=== PATIENT | male | born 1940 | race Caucasian/White ===

== ENCOUNTER 2022-03-22 23:54 | Inpatient (IN) | payer MEDICARE ==
[~2022-03-22] VITALS: Ht 175.3 cm; Wt 68.9 kg
--- NOTE | 2022-03-23 00:17 | NUR ---
BIBS. GENERALIZED ABD PAIN RADIATING TO BILAT FLANK X 1600 DULL THROBBING 04/01. PT AWAKE AND ALERT X4 BREATHING EVEN AND UNLABORED ALL V/S WNL.
--- NOTE | 2022-03-23 00:20 | NUR ---
DEDRA FISCHER: [phone]
[2022-03-23] MEDS ORDERED: IV NS 0.9% 1,000 ML BAG IV ONE (00:30)
[2022-03-23] MEDS ORDERED: ONDANSETRON HCL/PF 4 MG/2 ML VIAL IVP ONE (00:30)
[2022-03-23] MEDS ORDERED: KETOROLAC TROMETHAMINE INJ 30 MG/ML VIAL IV ONE (00:30)
[2022-03-23] MEDS ORDERED: ONDANSETRON HCL/PF 4 MG/2 ML VIAL ONE (00:39)
[2022-03-23] MEDS ORDERED: KETOROLAC TROMETHAMINE 15 MG/ML VIAL ONE (00:39)
--- NOTE | 2022-03-23 00:47 | NUR ---
ROGELIO Vasquez ESTABLISHED BLOOD DRAWN AND SENT TO LAB
[2022-03-23 01:05] LABS: BASOPHILS # (AUTO) 0.1 K/uL (0.0-0.2); BASOPHILS % (AUTO) 0.6 % (0.0-2.0); EOSINOPHILS % (AUTO) 0.1 % (0.0-6.0); HEMATOCRIT 45 % (39-51); HEMOGLOBIN 15.3 g/dL (13.5-17.5); LYMPHOCYTES # (AUTO) 0.5 K/uL (0.8-4.8); LYMPHOCYTES % (AUTO) 5.5 % (20.0-44.0); MEAN CORPUSCULAR HGB CONC 34 g/dl (31.0-36.0); MEAN CORPUSCULAR VOLUME 98 fL (80-96); MONOCYTES # (AUTO) 0.3 K/uL (0.1-1.30); MONOCYTES % (AUTO) 3.4 % (2.0-12.0); NEUTROPHILS # (AUTO) 7.6 K/uL (1.8-8.9); NEUTROPHILS % (AUTO) 90.4 % (43.0-81.0); PLATELET COUNT (AUTO) 162 K/uL (150-450); RED BLOOD CELL COUNT(AUTO) 4.57 MIL/uL (4.5-6.0); WHITE BLOOD COUNT (AUTO) 8.4 K/uL (4.3-11.0)
[2022-03-23] MEDS ORDERED: MORPHINE SULFATE INJ 4 MG/ML DISP.SYRIN ONE ×2 (01:14→02:15)
[2022-03-23] MEDS ORDERED: MORPHINE SULFATE INJ 2 MG/ML DISP.SYRIN IV ONE ×2 (01:30→02:30)
[2022-03-23 01:36] LABS: ALANINE AMINOTRANSFERASE 21 U/L (12-78); ALBUMIN 3.7 g/dL (3.4-5.0); ALKALINE PHOSPHATASE 56 U/L (46-116); ASPARTATE AMINOTRANSFERASE 19 U/L (15-37); BILIRUBIN,DIRECT 0.2 mg/dL (0.0-0.2); BILIRUBIN,TOTAL 0.6 mg/dL (0.2-1.0); CARBON DIOXIDE 29 mmol/L (21-32); CHLORIDE 103 mmol/L (98-107); CREATININE 1.5 mg/dL (0.6-1.3); GLUCOSE 140 mg/dL (74-106); POTASSIUM 4.1 mmol/L (3.5-5.1); SODIUM SERUM 142 mmol/L (136-145); TOTAL PROTEIN, SERUM 7.8 g/dL (6.4-8.2); UREA NITROGEN, BLOOD 23 mg/dL (7-18)
--- NOTE | 2022-03-23 01:42 | NUR ---
URINE COLLECTED AND SENT TO LAB
[2022-03-23 02:00] LABS: CALCIUM, SERUM 9.2 mg/dL (8.5-10.1)
--- NOTE | 2022-03-23 02:01 | NUR ---
DR GAYLE ON THE PHONE WITH DR JETER GENERAL SURGEON
[2022-03-23 02:16] LABS: BILIRUBIN,URINE NEGATIVE (NEGATIVE); COLOR,URINE YELLOW (YELLOW); LEUKOCYTE ESTERASE ,URINE NEGATIVE (NEGATIVE); NITRITE, URINE NEGATIVE (NEGATIVE); PH,URINE 7.5 (5.0-8.0); PROTEIN,URINE NEGATIVE (NEGATIVE); UGLUCOSE NEGATIVE (NEGATIVE); UROBILINOGEN,URINE 0.2 EU/dL (0.2)
--- NOTE | 2022-03-23 02:31 | NUR ---
NGT INSERTED 16FR AT 55CM. +AUSCULTATION BUT NO RESIDUAL NOTED. XRAY ORDER PLACED FOR PLACEMENT CONFIRMATION.
--- NOTE | 2022-03-23 02:32 | NUR ---
PER RN TRANSPORT, SMALL BOWEL FOLLOW THROUGH UNABLE TO BE PERFORMED UNTIL THE MORNING DUE TO HAVING NO RADIOLOGIST YOUTH NUTRITIONAL MONITOR.
--- NOTE | 2022-03-23 02:38 | NUR ---
ANGELO COLLECTED AND SENT TO [facility]
[2022-03-23] MEDS ORDERED: Z GUARD REMEDY 4 OZ OINT TP PRN (03:00)
[2022-03-23] MEDS ORDERED: ACETAMINOPHEN 650 MG/SUPP.RECT RC PRN (03:00)
[2022-03-23] MEDS ORDERED: HYDROCODONE/APAP 10/325MG TABLET PO PRN (03:00)
[2022-03-23] MEDS ORDERED: IV NS 0.9% 1,000 ML IV PRN (03:00)
[2022-03-23] MEDS ORDERED: ONDANSETRON HCL/PF 4 MG/2 ML VIAL IVP PRN (03:00)
[2022-03-23] MEDS ORDERED: HYDROMORPHONE INJ 2 MG/ML DISP.SYRIN IV PRN (03:00)
[2022-03-23] MEDS ORDERED: HYDROMORPHONE INJ 2 MG/ML DISP.SYRIN ONE (03:09)
[2022-03-23 04:44] LABS: LIPASE 159 U/L (73-393)
--- NOTE | 2022-03-23 07:39 | NUR ---
BED ASSIGNED [id number]
[2022-03-23] MEDS ORDERED: BENA10TA74 PO (07:48)
[2022-03-23] MEDS ORDERED: ASPI-1169 PO (07:48)
--- NOTE | 2022-03-23 08:06 | NUR ---
REPORT GIVEN TO KEVIN MCKEON FOR BAILEY
[2022-03-23] MEDS ORDERED: DIATR MEGLU/DIATRIZOATE SODIUM 120 ML BOTTLE (GASTROGRAPHIN) ONE (09:38)
[2022-03-23] MEDS ORDERED: DIATR MEGLU/DIATRIZOATE SODIUM 30 ML BOTTLE (GASTROGRAPHIN) ONE (09:38)
[2022-03-23] MEDS: PANTOPRAZOLE 40 MG VIAL IV SCH (11:09)
[2022-03-23] MEDS ORDERED: IV NS 0.9% 1,000 ML IV SCH (12:00)
[2022-03-23] MEDS ORDERED: ANESTHESIA TRAY IN PYXIS 1 EA TRAY MC ONE (15:35)
[2022-03-23] MEDS ORDERED: LIDOCAINE 1% INJ 50 ML MDV IJ ONE (15:36)
[2022-03-23] MEDS ORDERED: BUPIVACAINE MPF 0.5% W/EPI INJ 30 ML VIAL ONE (15:36)
[2022-03-23] MEDS ORDERED: FENTANYL PF 100MCG/2ML AMPUL ONE (16:24)
[2022-03-23] MEDS ORDERED: ROCURONIUM BROMIDE 50 MG/5 ML ONE (16:25)
[2022-03-23] MEDS ORDERED: SUCCINYLCHOLINE CHLORIDE 20 MG/ML VIAL ONE (16:25)
[2022-03-23] MEDS ORDERED: PROPOFOL 20 ML IV ONE (16:25)
--- NOTE | 2022-03-23 16:26 | NUR ---
RN NOTE PATIENT WAS BROUGHT DOWN TO SURGERY FOR EXPLORATORY LAP, POSSIBLE OPEN
[2022-03-23] MEDS ORDERED: PHYTONADIONE INJ 10 MG/1 ML AMPUL ONE (17:10)
--- NOTE | 2022-03-23 17:58 | NUR ---
SHIFT SUMMARY PATIENT'S STILL IN THE OR AT THE MOMENT. A/O X2, FORGETFUL, WITH EPISODES OF CONFUSION. FREQUENT REORIENTATION WERE PROVIDED. AMBULATORY WITH MIN ASSIST. IV ACCESS ON R AC #22 G, NS RUNNING AT 90 ML/HR, INTACT AND PATENT. PAIN MANAGED WITH DILAUDID. ZOFRAN X1 GIVEN. SKIN IS INTACT. SAFETY MEASURES INITIATED. BED IN LOWEST POSITION, BRAKES LOCKED. BED ALARM AT ALL TIMES. SIDE RAILS UP X2. CALL LIGHT WITHIN REACH. WILL ENDORSE CONTINUITY OF CARE TO ONCOMING SHIFT.
[2022-03-23] MEDS ORDERED: MIDAZOLAM HCL 2 MG/2ML VIAL ONE (18:52)
[2022-03-23 20:00] VITALS: BP_SYST 128; BP_SYST 131; BP_DIAS 81; BP_DIAS 83
[2022-03-23] MEDS: HYDROMORPHONE 1 MG/1 ML DISP.SYRIN IV PRN (20:12)
[2022-03-23] MEDS: IV LR 1000 ML 1,000 ML IV PRN (20:15)
[2022-03-23 20:30] VITALS: BP 119/78
--- NOTE | 2022-03-23 20:30 | NUR ---
RN Note Received an 81 year old male from OR. Report from MIKE Barney. Received written orders from esperanza ALBRIGHT from MIKE Barney, Orders faxed to pharmacy. Patient is alert to self only & restless, agitated, non-compliant. Poor concentration. Breathing is tachypneic, arrived on facemask at 10L/min via face mask. Oxygen saturation of 97 percent via bedside monitor. HOB elevated 35 degrees. On tele monitoring. States no to chest pain. Skin is warm and dry to touch. noted with right nostril NGT 61 cm. Verfied placement via auscultation. Connected to low intermittent wall suction. noted with green residual in NGT. Right AC 18G. Patient started on LR at 125 ml/hr. No infiltration. Indwelling matos catheter intact, draining by gravity. Patient arrived with Bilateral soft wrist restraints for risk of self injury. New order to add bilateral mittens continue restraints to maintain safety. Bilateral radial pulses wnl. Patient with medial abdomen dressing. Intact. No bleeding at this time. Patient complained of pain. Unable to provided further info. Administered Dilaudid 1 mg PRN per md order. Patient repositioned. Bed low, in locked position. Reminded to use call light when asssitance is required. Will continue to monitor.
[2022-03-23] MEDS: ZOSYN IVPB 2.25 G in IV D5W 50ml IV SCH (20:55)
[2022-03-23 21:00] VITALS: BP 97/57
[2022-03-23] MEDS ORDERED: PANTOPRAZOLE 40 MG VIAL IV SCH (21:00)
[2022-03-23] MEDS ORDERED: IV NS 0.9% 250 ML IV PRN (21:30)
[2022-03-23 22:00] VITALS: BP 110/68
[2022-03-23 22:33] LABS: CALCIUM, SERUM 8.2 mg/dL (8.5-10.1); CARBON DIOXIDE 28 mmol/L (21-32); CHLORIDE 110 mmol/L (98-107); CREATININE 2.1 mg/dL (0.6-1.3); GLUCOSE 146 mg/dL (74-106); PHOSPHORUS 3.3 mg/dL (2.5-4.9); POTASSIUM 4.2 mmol/L (3.5-5.1); SODIUM SERUM 146 mmol/L (136-145); UREA NITROGEN, BLOOD 26 mg/dL (7-18)
[2022-03-23 23:00] VITALS: BP 108/78
[2022-03-23 23:16] LABS: BASOPHILS % (AUTO) 0.4 % (0.0-2.0); EOSINOPHILS % (AUTO) 0.1 % (0.0-6.0); HEMATOCRIT 45 % (39-51); HEMOGLOBIN 14.8 g/dL (13.5-17.5); LYMPHOCYTES # (AUTO) 0.1 K/uL (0.8-4.8); MEAN CORPUSCULAR HGB CONC 33 g/dl (31.0-36.0); MEAN CORPUSCULAR VOLUME 101 fL (80-96); MONOCYTES % (AUTO) 8.5 % (2.0-12.0); NEUTROPHILS # (AUTO) 0.5 K/uL (1.8-8.9); PLATELET COUNT (AUTO) 110 K/uL (150-450); RED BLOOD CELL COUNT(AUTO) 4.45 MIL/uL (4.5-6.0)
[2022-03-23 23:17] LABS: WHITE BLOOD COUNT (AUTO) 0.6 K/uL (4.3-11.0)
[2022-03-24] VITALS (32 sets, daily range): BP systolic 86–162; BP diastolic 50–87
[2022-03-24 00:01] LABS: BAND % (MANUAL) 3 % (0.0-5.0); LYMPHOCYTES % (MANUAL) 11 % (16-48); MONOCYTES % (MANUAL) 8 % (0-11.0); NEUTROPHILS % (MANUAL) 78 (42-76)
[2022-03-24] MEDS: ZOSYN IVPB 2.25 G in IV D5W 50ml IV SCH ×5 (01:18→23:33)
[2022-03-24] MEDS ORDERED: NOREPINEPHRINE 32 MG in IV NS 0.9% 218 ML IV PRN ×2 (03:00→04:00)
--- NOTE | 2022-03-24 03:41 | NUR ---
RN Note Patient appears more alert. Relaxed. Able to follow commands. Bilateral soft wrist restraints & mittens were D/C'd around 0000. Patient requested for splint on right arm to prevent bending of arm where IV site is located. Assisted with turning and repositioning. Will continue to monitor.
[2022-03-24] MEDS: IV LR 1000 ML 1,000 ML IV PRN (04:12)
[2022-03-24 04:40] LABS: BASOPHILS % (AUTO) 0.2 % (0.0-2.0); EOSINOPHILS % (AUTO) 0.1 % (0.0-6.0); HEMATOCRIT 41 % (39-51); HEMOGLOBIN 13.6 g/dL (13.5-17.5); LYMPHOCYTES # (AUTO) 0.1 K/uL (0.8-4.8); LYMPHOCYTES % (AUTO) 8.9 % (20.0-44.0); MEAN CORPUSCULAR HGB CONC 33 g/dl (31.0-36.0); MEAN CORPUSCULAR VOLUME 101 fL (80-96); MONOCYTES # (AUTO) 0.2 K/uL (0.1-1.30); MONOCYTES % (AUTO) 13.4 % (2.0-12.0); NEUTROPHILS # (AUTO) 0.9 K/uL (1.8-8.9); NEUTROPHILS % (AUTO) 77.4 % (43.0-81.0); PLATELET COUNT (AUTO) 96 K/uL (150-450); RED BLOOD CELL COUNT(AUTO) 4.12 MIL/uL (4.5-6.0)
[2022-03-24 04:47] LABS: WHITE BLOOD COUNT (AUTO) 1.1 K/uL (4.3-11.0)
[2022-03-24 04:54] LABS: CALCIUM, SERUM 7.9 mg/dL (8.5-10.1); CARBON DIOXIDE 27 mmol/L (21-32); CHLORIDE 111 mmol/L (98-107); CREATININE 2.3 mg/dL (0.6-1.3); GLUCOSE 154 mg/dL (74-106); PHOSPHORUS 2.4 mg/dL (2.5-4.9); POTASSIUM 3.6 mmol/L (3.5-5.1); SODIUM SERUM 146 mmol/L (136-145); UREA NITROGEN, BLOOD 28 mg/dL (7-18)
[2022-03-24 05:29] LABS: BAND % (MANUAL) 3 % (0.0-5.0)
[2022-03-24 05:30] LABS: LYMPHOCYTES % (MANUAL) 10 % (16-48); MONOCYTES % (MANUAL) 10 % (0-11.0); NEUTROPHILS % (MANUAL) 77 (42-76)
--- NOTE | 2022-03-24 07:00 | NUR ---
RN NOTES RECEIVED PT ON BED , A/Ox3-4, PT ON 2L O2 N/C , O2 SAT WNL, V-PACING ON MONITOR , HR IN 80's, NIETO DRAINING TO GRAVITY, DRESSING TO ABD , CLEAN, DRY AND INTACT, NGT TO LIS , WITH SMALL AMOUNT OF GREENISH DRAINAGE, IV RUNNING AT 125CC/HR , SR UPx3, CALL LIGHT WITHIN EASY REACH, BED LOCKED AND IN LOWEST POSITION, CONTINUE TO MONITOR .
[2022-03-24] MEDS: PANTOPRAZOLE 40 MG VIAL IV SCH (08:04)
[2022-03-24] MEDS: HYDROMORPHONE 1 MG/1 ML DISP.SYRIN IV PRN ×3 (09:37→18:45)
[2022-03-24] MEDS ORDERED: IV NS 0.9% 1,000 ML IV PRN (10:30)
--- NOTE | 2022-03-24 12:00 | NUR ---
RN NOTES FAMILY AT THE BEDSIDE, VSS STABLE, CONTINUE TO MONITOR .
[2022-03-24] MEDS: MIDODRINE HCL (5MG) 5 MG TABLET PO SCH ×2 (13:04→16:32)
--- NOTE | 2022-03-24 16:00 | NUR ---
RN NOTES PT ACCIDENTALLY PULL NGT OUT. TOTAL OF 30 CC AMOUNT OF GREENISH GASTRIC DRAINAGE NOTED, PT REFUSED TO HAVE NGT TUBE BACK IN , DR LOERA NOTIFIED .
--- NOTE | 2022-03-24 18:00 | NUR ---
RN NOTES NO SIGNIFICANT CHANGES NOTED ON THIS SHIFT, PT CONFUSED AT TIMES AND GET REORIENTED EASILY, REMAINS NPO, WILL ENDORSE TO JUSTOWRITER OPERATOR NURSE FOR CONTINUITY OF CARE
[2022-03-24] MEDS ORDERED: Sodium Phosphate 15 MMOL in IV NS 0.9% 245 ML IV SCH (19:00)
--- NOTE | 2022-03-24 19:34 | NUR ---
TOUCH UP EDGER. INITIAL ASSESSMENT. RECEIVED THE PT REST IN BED, AWAKE, CONFUSED. MD LOERA AT BED SIDE, FULL LIQUID DIET STARTED. FC PATENT, HOB ELEVATED. OXYGEN 2L VIA NASAL CANNULA. SAT 98%. NO ACUTE DISTRESS NOTED. APPLIANCE REPAIR TECHNICIAN SHOWING V PACING. IV LT HAND 20G. IVF NS 100 ML/H. WILL CONTINUE TO MONITOR VITALS.
[2022-03-24] MEDS ORDERED: BUMETANIDE INJ 0.25 MG/ML VIAL IV ONE (20:30)
--- NOTE | 2022-03-24 20:34 | NUR ---
manager agricultural. pt is agitated. getting out of bed. pulling ivand foleys catheter. notified roberto nelson. new order received. will continue to monitor vitals.
[2022-03-24] MEDS: ACETAMINOPHEN 325 MG TABLET PO SCH (20:44)
[2022-03-24] MEDS: IBUPROFEN 400 MG TABLET PO SCH (20:45)
[2022-03-24] MEDS: GABAPENTIN 300 MG CAPSULE PO SCH (20:45)
[2022-03-24] MEDS: IV NS 0.9% 1,000 ML IV PRN (20:46)
[2022-03-24] MEDS ORDERED: POTASSIUM CHLORIDE 20 MEQ TAB.PRT.SR PO SCH (23:30)
[2022-03-25] VITALS (25 sets, daily range): BP systolic 88–131; BP diastolic 52–83
[2022-03-25] MEDS: GABAPENTIN 300 MG CAPSULE PO SCH ×3 (03:30→20:34)
[2022-03-25] MEDS: IBUPROFEN 400 MG TABLET PO SCH ×3 (03:30→20:35)
[2022-03-25] MEDS: ACETAMINOPHEN 325 MG TABLET PO SCH ×3 (03:30→20:35)
[2022-03-25 04:16] LABS: BASOPHILS % (AUTO) 0.1 % (0.0-2.0); HEMATOCRIT 37 % (39-51); HEMOGLOBIN 12.9 g/dL (13.5-17.5); LYMPHOCYTES # (AUTO) 0.1 K/uL (0.8-4.8); LYMPHOCYTES % (AUTO) 1.5 % (20.0-44.0); MEAN CORPUSCULAR HGB CONC 35 g/dl (31.0-36.0); MEAN CORPUSCULAR VOLUME 99 fL (80-96); MONOCYTES # (AUTO) 0.1 K/uL (0.1-1.30); MONOCYTES % (AUTO) 1.4 % (2.0-12.0); NEUTROPHILS # (AUTO) 6.4 K/uL (1.8-8.9); PLATELET COUNT (AUTO) 85 K/uL (150-450); RED BLOOD CELL COUNT(AUTO) 3.75 MIL/uL (4.5-6.0); WHITE BLOOD COUNT (AUTO) 6.6 K/uL (4.3-11.0)
[2022-03-25 04:25] LABS: CALCIUM, SERUM 8.2 mg/dL (8.5-10.1); CHLORIDE 111 mmol/L (98-107); GLUCOSE 114 mg/dL (74-106); PHOSPHORUS 5.3 mg/dL (2.5-4.9); POTASSIUM 3.7 mmol/L (3.5-5.1); SODIUM SERUM 147 mmol/L (136-145); UREA NITROGEN, BLOOD 33 mg/dL (7-18)
--- NOTE | 2022-03-25 04:28 | NUR ---
precision agriculture technician. am care given. remaining same ivf running. hob elevated. fc patent. urine draining. will continue to monitor vitals.
[2022-03-25 04:35] LABS: CARBON DIOXIDE 30 mmol/L (21-32)
[2022-03-25] MEDS: ZOSYN IVPB 2.25 G in IV D5W 50ml IV SCH ×3 (05:56→17:06)
--- NOTE | 2022-03-25 07:18 | NUR ---
PARTITION ASSEMBLY MACHINE OPERATOR. PT AGITATED GETTING OUT OF BED. PULLING LINES. SOFT WRIST RESTRAINT INITIATED
[2022-03-25] MEDS: MIDODRINE HCL (5MG) 5 MG TABLET PO SCH ×3 (08:07→17:05)
[2022-03-25] MEDS: PANTOPRAZOLE 40 MG VIAL IV SCH (08:07)
--- NOTE | 2022-03-25 11:59 | NUR ---
RECEIVED A PHONECALL FROM WITH NEW ORDER OF MIRALAX QDAILY.
[2022-03-25] MEDS: IV NS 0.9% 1,000 ML IV PRN (12:06)
--- NOTE | 2022-03-25 15:03 | NUR ---
DR. COVARRUBIAS MADE AWARE THAT PATIENT'S SON-DEDRA Graff IS HERE VISITING THE PT. AND REQUESTING A PHONECALL FROM AN M.D. ; DEDRA THEN WAS INFORMED THAT DR. COVARRUBIAS WAS BEING NOTIFIED ABOUT HIS PHONECALL REQUEST AND DEDRA VERBALIZED UNDERSTANDING.
[2022-03-25] MEDS: POLYETHYLENE GLYCOL 3350 17 GM POWD.PACK PO SCH (17:05)
--- NOTE | 2022-03-25 17:37 | NUR ---
SEEN PT. AND MD WITH NEW ORDERS OF SOFT DIET, D/C IVF NS AND D/C ZOSYN, AND MAY ASSIST PT. TO AMBULATE PRN, ORDERS NOTED AND WILL CARRY OUT ORDERED. ALSO NOTIFIED THAT PATIENT'S SON -DEDRA REQUESTING A CALL FROM [facility]
--- NOTE | 2022-03-25 17:58 | NUR ---
RN ASSISTED PT. TO AMBULATE IN THE ROOM AND TOLERATED THE ACTIVITY. DENIES ANY DISCOMFORT.
--- NOTE | 2022-03-25 18:15 | NUR ---
PT. HAD A SMALL BM X 1 WITH MIXTURE OF OLD BLOOD APPROXIMATELY 2 OUNCES AMOUNT, INFORMED CHARGE NURSE TO EVALUATE THE STOOL AND CN STATES " THAT IS COMMON AFTER ABD'L. SURGERY."
--- NOTE | 2022-03-25 18:30 | NUR ---
NOTIFIED DR. LOERA THAT PT. DID AMBULATE WITH STAFF ASSISTANCE IN THE ROOM AND PT. TOLERATED THE ACTIVITY. THEN AT 18:15PM PT. HAD A SMALL BM X 1 WITH MIXTURE OF OLD BLOOD APPROXIMATELY 2 OUNCES AMOUNT. NO ORDER MADE AT THIS TIME.
--- NOTE | 2022-03-25 19:53 | NUR ---
SIZE MIXER. INITIAL ASSESSMENT. RECEIVED THE PT REST IN BED. AWAKE, ALERT. FOLLOW COMMANDS. AT THIS TIME. OXYGEN 3L VIA N/C. SAT 98%. NO ACUTE DISTRESS NOTED. POTTERY KILN BUILDER SHOWING NSR. IV LT AC 20G. SALINE LOCK. HOB ELEVATED. POTTERY KILN BUILDER SHOWING V PACING. WILL CONTINUE TO MONITOR VITALS.
[2022-03-26] VITALS (16 sets, daily range): BP systolic 94–136; BP diastolic 53–78
[2022-03-26] MEDS: GABAPENTIN 300 MG CAPSULE PO SCH ×3 (04:09→20:37)
[2022-03-26] MEDS: IBUPROFEN 400 MG TABLET PO SCH ×3 (04:09→20:37)
[2022-03-26] MEDS: ACETAMINOPHEN 325 MG TABLET PO SCH ×3 (04:09→20:37)
[2022-03-26 04:19] LABS: EOSINOPHILS % (AUTO) 0.2 % (0.0-6.0); HEMATOCRIT 36 % (39-51); HEMOGLOBIN 12.1 g/dL (13.5-17.5); LYMPHOCYTES # (AUTO) 0.2 K/uL (0.8-4.8); LYMPHOCYTES % (AUTO) 1.5 % (20.0-44.0); MEAN CORPUSCULAR HGB CONC 34 g/dl (31.0-36.0); MEAN CORPUSCULAR VOLUME 99 fL (80-96); MONOCYTES # (AUTO) 0.2 K/uL (0.1-1.30); MONOCYTES % (AUTO) 1.5 % (2.0-12.0); NEUTROPHILS % (AUTO) 96.8 % (43.0-81.0); PLATELET COUNT (AUTO) 86 K/uL (150-450); RED BLOOD CELL COUNT(AUTO) 3.63 MIL/uL (4.5-6.0); WHITE BLOOD COUNT (AUTO) 10.3 K/uL (4.3-11.0)
[2022-03-26 04:30] LABS: CALCIUM, SERUM 8.3 mg/dL (8.5-10.1); CARBON DIOXIDE 30 mmol/L (21-32); CHLORIDE 108 mmol/L (98-107); CREATININE 1.8 mg/dL (0.6-1.3); GLUCOSE 95 mg/dL (74-106); MAGNESIUM 2.4 mg/dL (1.8-2.4); PHOSPHORUS 2.8 mg/dL (2.5-4.9); POTASSIUM 3.5 mmol/L (3.5-5.1); SODIUM SERUM 145 mmol/L (136-145); UREA NITROGEN, BLOOD 36 mg/dL (7-18)
[2022-03-26 05:00] LABS: BAND % (MANUAL) 6 % (0.0-5.0); BASOPHILS % (MANUAL) 0 % (0.0-2.0); EOSINOPHILS % (MANUAL) 0 % (0-4); LYMPHOCYTES % (MANUAL) 2 % (16-48); MONOCYTES % (MANUAL) 2 % (0-11.0); NEUTROPHILS % (MANUAL) 90 (42-76)
--- NOTE | 2022-03-26 07:30 | NUR ---
RN NOTES PT FOUND SEMI FOWLERS, APPEARS TO BE SLEEPING, DISPLAYING NO S/S OF ACUTE DISTRESS, FLACC = 0 AND BREATHING IS EVEN AND UNLABORED ON 2L O2 NC. PT IS V-PACING ON THE MONITOR. NIETO CATH BELOW PATIENT DRAINING BY GRAVITY. L AC 20G IS PATIENT AND INTACT. RN WILL CONTINUE CARE PLAN AND ANTICIPATE NEEDS. SAFETY MEASURES IN PLACE, BED LOCKED AND IN LOWEST POSITION, SIDE RAILS UPX2, CALL LIGHT WITHIN REACH, BED ALARM ARMED.
--- NOTE | 2022-03-26 09:00 | NUR ---
MD COMMUNICATION RN SPOKE TO DR LUZ MARIA MD GAVE ORDERS: GIVE PYDRIDIUM 200MG PO ONE TIME AND THEN REMOVE NIETO CATHETER ONE HOUR LATER. RN ACKNOWLEDGED AND WILL EXECUTE ORDERS.
[2022-03-26] MEDS: POLYETHYLENE GLYCOL 3350 17 GM POWD.PACK PO SCH (09:25)
[2022-03-26] MEDS: MIDODRINE HCL (5MG) 5 MG TABLET PO SCH ×3 (09:25→17:36)
[2022-03-26] MEDS: PANTOPRAZOLE 40 MG VIAL IV SCH (09:25)
[2022-03-26] MEDS ORDERED: PHENAZOPYRIDINE HCL 200 MG TABLET PO ONE (09:30)
[2022-03-26] MEDS ORDERED: MEROPENEM 500 MG in IV NS 0.9% 50 ML IV SCH (13:00)
[2022-03-26] MEDS: MEROPENEM 1 G in IV NS 0.9% 100 ML IV SCH (13:31)
--- NOTE | 2022-03-26 16:30 | NUR ---
MS RN ADMITTING NOTES: RECEIVED A 81 YO MALE PT FROM ICU VIA BED ACCOMPANIED BY MIKE PARMAR AND ANJU. PATIENT ALERT AND ORIENTED X 4 AND ABLE TO VERBALIZED NEEDS. NO SOB OR CARDIAC DISTRESS NOTED, ABDOMEN NOTED WITH SURGICAL DRESSING INTACT,IV ACCESS ON LAC G20 PATENT, INTACT AND SALINE LOCKED. ABDOMEN IS TENDER BUT NO PAIN UPON PALPATION. NOTED WITH LEFT FOREARM SKIN DISCOLORATION. SAFETY PREC MAINTAINED. BED LOCKED ADN IN LOWEST POSITION, SIDE RAILS UP X 2, CALL LIGHT IN EASY REACH FOR HELP. ORIENTED TO UNIT, STAFFS AND ROOM MATE. KEPT RESTED AND COMFORTABLE.
--- NOTE | 2022-03-26 16:40 | NUR ---
TRANSFER PT DOWNGRADED TO MS ROOM 326, BEDSIDE REPORT AND SBAR GIVEN TO MIKE ANTHONY, ALL QUESTIONS ANSWERED. PT IS A&OX4, BREATHING EVEN AND UNLABORED ON 2L O2 NC. PT CURRENTLY ENDORSES NO PAIN. BELONGINGS REVIEWED AND BROUGHT WITH PATIENT. BLADDER SCAN ATTEMPTED PRIOR TO TRANSFER, SURGICAL DRESSING PREVENTED MEANINGFUL MEASUREMENT, 3W RN INFORMED OF POSSIBLE URINE RETENTION. SURGICAL DRESSING IS CLEAN AND DRY. PT ENDORSED IN STABLE CONDITION FOR BAILEY.
--- NOTE | 2022-03-26 18:38 | NUR ---
MS RN CLOSING NOTES: PATIENT ALERT AND ORIENTED X 4 AND ABLE TO VERBALIZED NEEDS. NO SOB OR CARDIAC DISTRESS NOTED, ABDOMEN NOTED WITH SURGICAL DRESSING INTACT,IV ACCESS ON LAC G20 PATENT, INTACT AND SALINE LOCKED. NOTED WITH LEFT FOREARM SKIN DISCOLORATION. SAFETY PREC MAINTAINED. BED LOCKED AND IN LOWEST POSITION, SIDE RAILS UP X 2, CALL LIGHT IN EASY REACH FOR HELP. OENDORSED TO GROCERY SPECIALIST FOR BAILEY.
--- NOTE | 2022-03-26 20:16 | NUR ---
MS RN OPENING NOTES: RECEIVED PATIENT AWAKE IN BED, BED IN LOW POSITION, CALL LIGHTS WITHIN REACH, NO COMPLAIN OF PAIN AND DISCOMFORT AT THIS TIME, ON NC @2LPM SATURATING WELL, NO SOB WAS OBSERVED, PATIENT KEPT CLEAN AND DRY ALL NEEDS MET WILL CONTINUE TO MONITOR.
[2022-03-27] MEDS: MEROPENEM 1 G in IV NS 0.9% 100 ML IV SCH ×2 (01:12→12:56)
[2022-03-27] MEDS: IBUPROFEN 400 MG TABLET PO SCH ×3 (04:34→20:24)
[2022-03-27] MEDS: GABAPENTIN 300 MG CAPSULE PO SCH ×3 (04:34→20:23)
[2022-03-27] MEDS: ACETAMINOPHEN 325 MG TABLET PO SCH ×3 (04:34→20:24)
--- NOTE | 2022-03-27 06:18 | NUR ---
MS RN CLOSING NOTES: PATIENT AWAKE IN BED, BED IN LOW POSITION, CALL LIGHTS WITHIN REACH, NO COMPLAIN OF APIN AND DISCOMFORT AT THIS TIME, ON O2 INAHALTIONAT 2LPM SATURATING WELL, PATIENT IS A/OX3 AMBULATE FROM BED TO WHEEL CHAIR, PATIENT KEPT CLEAN AND DRY ALL NEEDS ,MET ENDORSE TO INCOMING SHIFT,
[2022-03-27 06:44] LABS: BASOPHILS % (AUTO) 0.1 % (0.0-2.0); EOSINOPHILS % (AUTO) 0.7 % (0.0-6.0); HEMATOCRIT 34 % (39-51); HEMOGLOBIN 11.7 g/dL (13.5-17.5); LYMPHOCYTES # (AUTO) 0.2 K/uL (0.8-4.8); LYMPHOCYTES % (AUTO) 2.1 % (20.0-44.0); MEAN CORPUSCULAR HGB CONC 35 g/dl (31.0-36.0); MEAN CORPUSCULAR VOLUME 98 fL (80-96); MONOCYTES # (AUTO) 0.3 K/uL (0.1-1.30); MONOCYTES % (AUTO) 2.6 % (2.0-12.0); NEUTROPHILS % (AUTO) 94.5 % (43.0-81.0); PLATELET COUNT (AUTO) 110 K/uL (150-450); RED BLOOD CELL COUNT(AUTO) 3.48 MIL/uL (4.5-6.0); WHITE BLOOD COUNT (AUTO) 10.6 K/uL (4.3-11.0)
[2022-03-27 07:27] LABS: CALCIUM, SERUM 8.1 mg/dL (8.5-10.1); CARBON DIOXIDE 26 mmol/L (21-32); CHLORIDE 107 mmol/L (98-107); CREATININE 1.7 mg/dL (0.6-1.3); GLUCOSE 112 mg/dL (74-106); MAGNESIUM 2.3 mg/dL (1.8-2.4); PHOSPHORUS 2.5 mg/dL (2.5-4.9); POTASSIUM 3.3 mmol/L (3.5-5.1); SODIUM SERUM 141 mmol/L (136-145); UREA NITROGEN, BLOOD 43 mg/dL (7-18)
--- NOTE | 2022-03-27 07:30 | NUR ---
MS RN OPENING NOTES: RECEIVED PATIENT IN BED ASLEEP EASILY AWAKEN WITH STIMULI ALERT AND ORIENTED X 4 AND ABLE TO VERBALIZED NEEDS. NO SOB OR CARDIAC DISTRESS NOTED, ABDOMEN NOTED WITH SURGICAL DRESSING INTACT,IV ACCESS ON LAC G20 PATENT, INTACT AND SALINE LOCKED. SAFETY PREC MAINTAINED. BED LOCKED AND IN LOWEST POSITION, SIDE RAILS UP X 2, CALL LIGHT IN EASY REACH FOR HELP. WILL MONITOR ACCORDINGLY.
[2022-03-27 07:42] LABS: BAND % (MANUAL) 6 % (0.0-5.0); BASOPHILS % (MANUAL) 0 % (0.0-2.0); EOSINOPHILS % (MANUAL) 0 % (0-4); LYMPHOCYTES % (MANUAL) 5 % (16-48); MONOCYTES % (MANUAL) 4 % (0-11.0); NEUTROPHILS % (MANUAL) 85 (42-76)
[2022-03-27] MEDS: PANTOPRAZOLE 40 MG VIAL IV SCH (08:45)
[2022-03-27] MEDS: POLYETHYLENE GLYCOL 3350 17 GM POWD.PACK PO SCH (09:00)
[2022-03-27] MEDS: MIDODRINE HCL (5MG) 5 MG TABLET PO SCH ×3 (09:00→17:00)
--- NOTE | 2022-03-27 09:22 | NUR ---
RN NOTES: PATIENT REFUSED TO TAKE MIRALAX BECAUSE HE HAD BOWEL MOVEMENT LAST NIGHT, PT BP IS 130/98 MIDODRINE ON HOLD.
[2022-03-27] MEDS ORDERED: POTASSIUM CHLORIDE 10 MEQ TABLET.SA PO ONE (10:00)
--- NOTE | 2022-03-27 12:57 | NUR ---
RN NOTES: HOLD MIDODRINE: BP IS 140/90
--- NOTE | 2022-03-27 18:53 | NUR ---
MS RN CLOSING NOTES: PATIENT IN BED AWAKE, ALERT AND ORIENTED X 4 AND ABLE TO VERBALIZED NEEDS. NO SOB OR CARDIAC DISTRESS NOTED, ABDOMEN NOTED WITH SURGICAL DRESSING INTACT,IV ACCESS ON LAC G20 PATENT, INTACT AND SALINE LOCKED. PATIENT ABLE TO AMBULATE AND WENT TO TOILET WITH ASSISTANCE. SAFETY PREC MAINTAINED. BED LOCKED AND IN LOWEST POSITION, SIDE RAILS UP X 2, CALL LIGHT IN EASY REACH FOR HELP. WILL MONITOR ACCORDINGLY. ENDORSED TO MOBILE PLANT OPERATORS FOR BAILEY.
--- NOTE | 2022-03-27 19:50 | NUR ---
TELERN FULLY AWAKE, VERY PLEASANT. PAINFREE. ABD DRESSING DRY AND INTACT. NO DISCOMFORTS. ALL NEEDS MADE. CALL LIGHT USE REVIEWED WUTH PATIENT, WELL UNDERSTOOD. REMINDED TO CALL STAFF FOR ANY ASSISTANCE OR DISCOMFORTS. SAFETY PRECAUTIONS EMPHASIZED.
[2022-03-27 20:34] VITALS: BP 129/79
[2022-03-28] MEDS: MEROPENEM 1 G in IV NS 0.9% 100 ML IV SCH ×2 (02:19→13:06)
--- NOTE | 2022-03-28 03:32 | NUR ---
TELERN ASLEEP APPEARS COMFORTABLE. CLOSELY WATCHED
[2022-03-28] MEDS: GABAPENTIN 300 MG CAPSULE PO SCH ×3 (04:20→20:25)
[2022-03-28] MEDS: IBUPROFEN 400 MG TABLET PO SCH ×3 (04:20→20:25)
[2022-03-28] MEDS: ACETAMINOPHEN 325 MG TABLET PO SCH ×3 (04:20→20:25)
--- NOTE | 2022-03-28 06:45 | NUR ---
MSRN FREQUENTLY REORIENTED SUPERVISOR WARPING DEPARTMENT LIGHT USE. REMAINS COOPERATIVE
[2022-03-28 06:51] LABS: BASOPHILS % (AUTO) 0.2 % (0.0-2.0); EOSINOPHILS % (AUTO) 1.4 % (0.0-6.0); HEMATOCRIT 34 % (39-51); HEMOGLOBIN 11.6 g/dL (13.5-17.5); LYMPHOCYTES # (AUTO) 0.3 K/uL (0.8-4.8); MEAN CORPUSCULAR HGB CONC 34 g/dl (31.0-36.0); MEAN CORPUSCULAR VOLUME 99 fL (80-96); MONOCYTES # (AUTO) 0.5 K/uL (0.1-1.30); MONOCYTES % (AUTO) 7.2 % (2.0-12.0); NEUTROPHILS # (AUTO) 5.6 K/uL (1.8-8.9); NEUTROPHILS % (AUTO) 87.2 % (43.0-81.0); PLATELET COUNT (AUTO) 114 K/uL (150-450); RED BLOOD CELL COUNT(AUTO) 3.47 MIL/uL (4.5-6.0); WHITE BLOOD COUNT (AUTO) 6.4 K/uL (4.3-11.0)
--- NOTE | 2022-03-28 07:10 | NUR ---
MS RN OPENING NOTES RECEIVED PATIENT AWAKE IN BED WATCHING TV. A/O x3, ON ROOM AIR. NO S/S OF RESPIRATORY DISTRESS. IV ACCESS ON L AC #20G SL. PATIENT IS CONTINENT USES URINAL AND BATHROOM. AMBULATORY, WITH ASSISTANCE. SKIN INTACT, NO COMPLAINTS OF PAIN OR DISCOMFORT AT THIS TIME. SAFETY MEASUREMENTS IN PLACE: BED LOCKED AND IN LOWEST POSITION, SIDE RAILS UP x2, CALL LIGHT WITHIN REACH. WILL CONTINUE TO MONITOR.
[2022-03-28 07:26] LABS: CALCIUM, SERUM 8.3 mg/dL (8.5-10.1); CARBON DIOXIDE 24 mmol/L (21-32); CHLORIDE 113 mmol/L (98-107); CREATININE 1.5 mg/dL (0.6-1.3); GLUCOSE 97 mg/dL (74-106); MAGNESIUM 2.3 mg/dL (1.8-2.4); POTASSIUM 3.3 mmol/L (3.5-5.1); SODIUM SERUM 148 mmol/L (136-145); UREA NITROGEN, BLOOD 40 mg/dL (7-18)
[2022-03-28 08:00] VITALS: BP 139/60
[2022-03-28] MEDS: POLYETHYLENE GLYCOL 3350 17 GM POWD.PACK PO SCH (08:36)
[2022-03-28] MEDS: PANTOPRAZOLE 40 MG VIAL IV SCH (08:36)
[2022-03-28] MEDS: MIDODRINE HCL (5MG) 5 MG TABLET PO SCH ×3 (08:37→17:21)
[2022-03-28 08:44] LABS: BAND % (MANUAL) 4 % (0.0-5.0); BASOPHILS % (MANUAL) 0 % (0.0-2.0); EOSINOPHILS % (MANUAL) 2 % (0-4); LYMPHOCYTES % (MANUAL) 3 % (16-48); MONOCYTES % (MANUAL) 11 % (0-11.0); NEUTROPHILS % (MANUAL) 80 (42-76)
[2022-03-28] MEDS ORDERED: POTASSIUM CHLORIDE 20 MEQ POWDER PACKET PO ONE (09:00)
--- NOTE | 2022-03-28 12:00 | NUR ---
RN NOTES PATIENT AMBULATED WITH DAUGHTER IN LAW AROUND THE UNIT, DENIES ANY PAIN OR DISCOMFORT, NO SOB NOTED.
[2022-03-28 16:00] VITALS: BP 143/86
--- NOTE | 2022-03-28 18:38 | NUR ---
MS RN CLOSING NOTES PATIENT AWAKE IN BED ON PHONE. A/O x3, STABLE ON ROOM AIR. NO S/S OF RESPIRATORY DISTRESS. IV ACCESS ON R FA #22G SL. PATIENT IS CONTINENT USES URINAL AND BEDSIDE COMMODE, AMBULATORY, WITH ASSISTANCE. SKIN INTACT, NO COMPLAINTS OF PAIN OR DISCOMFORT AT THIS TIME. SAFETY MEASUREMENTS MAINTAINED: BED LOCKED AND IN LOWEST POSITION, SIDE RAILS UP x2, CALL LIGHT WITHIN REACH. WILL ENDORSE TO NEXT SHIFT ANY BAILEY.
[2022-03-28 20:00] VITALS: BP 156/93
--- NOTE | 2022-03-28 20:00 | NUR ---
MS RN OPENING NOTES: RECEIVED PATIENT AWAKE IN BED, BED IN LOW POSITION CALL LIGHTS WITHIN REACH, NO COMPLAIN OF PAIN AND DISCOMFORT AT THIS TIME, ON O2 INHALATION AT 2LPM SATURATING WELL, PATIENT WITH IV LINE AT RFA#22SL. AMBULATORY TO BEDSIDE COMMODE, REMIND PATIENT TO USE CALL LIGHTS,PATIENT KEPT CLEAN AND DRY ALL NEEDS MET [facility]
[2022-03-28 22:00] VITALS: BP 150/89
[2022-03-29] MEDS: MEROPENEM 1 G in IV NS 0.9% 100 ML IV SCH ×2 (01:12→13:58)
[2022-03-29] MEDS: IBUPROFEN 400 MG TABLET PO SCH ×3 (04:10→20:51)
[2022-03-29] MEDS: ACETAMINOPHEN 325 MG TABLET PO SCH ×3 (04:10→20:51)
[2022-03-29] MEDS: GABAPENTIN 300 MG CAPSULE PO SCH ×3 (04:10→20:51)
--- NOTE | 2022-03-29 06:30 | NUR ---
MS RN CLOSING NOTES; PATIENT SLEEP IN BED COMFORTABLY, AROUSABLE TO VERBAL STIMULI, BED IN LOW POSITION CALL LIGHTS WITHIN REACH, NO COMPLAIN OF PAIN AND DISCOMFORT AT THIS TIME, ON ROOM AIR SATURATING WELL, PATIENT IS A/OX4 ABLE TO MAKE NEED KNOWN, AMBULATORY TO BED AND BSC, PATIENT KEPT CLEAN AND DRY ALL NEEDS MET ENDORSE TO INCOMING SHIFT.
[2022-03-29 06:33] LABS: BASOPHILS % (AUTO) 0.3 % (0.0-2.0); EOSINOPHILS % (AUTO) 0.7 % (0.0-6.0); HEMATOCRIT 37 % (39-51); HEMOGLOBIN 12.4 g/dL (13.5-17.5); LYMPHOCYTES # (AUTO) 0.3 K/uL (0.8-4.8); LYMPHOCYTES % (AUTO) 3.2 % (20.0-44.0); MEAN CORPUSCULAR HGB CONC 34 g/dl (31.0-36.0); MEAN CORPUSCULAR VOLUME 97 fL (80-96); MONOCYTES # (AUTO) 0.7 K/uL (0.1-1.30); MONOCYTES % (AUTO) 6.2 % (2.0-12.0); NEUTROPHILS # (AUTO) 9.6 K/uL (1.8-8.9); NEUTROPHILS % (AUTO) 89.6 % (43.0-81.0); PLATELET COUNT (AUTO) 145 K/uL (150-450); RED BLOOD CELL COUNT(AUTO) 3.77 MIL/uL (4.5-6.0); WHITE BLOOD COUNT (AUTO) 10.8 K/uL (4.3-11.0)
--- NOTE | 2022-03-29 07:05 | NUR ---
MS RN OPENING NOTES RECEIVED PATIENT AWAKE IN BED, A/Ox3-4, WITH MOMENTS OF CONFUSION, ON ROOM AIR. PATIENT SHOWS NO S/S OF RESPIRATORY DISTRESS. NO C/O OF CARDIAC DISTRESS. IV ACCESS RFA #22 SL, INTACT AND PATENT. NO S/S OF INFILTRATION. PATIENT IS AMBULATORY AND USES BEDSIDE COMMODE. PATIENT SKIN IS INTACT, ABDOMEN HAS SURGERY SITE, DRESSING INTACT. SAFETY MEASURES IN PLACE: BED LOCKED AND IN LOWEST POSITION, SIDE RAILS UP x2, CALL LIGHT WITHIN REACH, HOB ELEVATED AND BEDSIDE TABLE WITHIN REACH. WILL CONTINUE TO MONITOR.
[2022-03-29 07:10] LABS: CALCIUM, SERUM 8.7 mg/dL (8.5-10.1); CARBON DIOXIDE 23 mmol/L (21-32); CHLORIDE 112 mmol/L (98-107); CREATININE 1.3 mg/dL (0.6-1.3); GLUCOSE 89 mg/dL (74-106); MAGNESIUM 2.3 mg/dL (1.8-2.4); PHOSPHORUS 3.3 mg/dL (2.5-4.9); POTASSIUM 3.7 mmol/L (3.5-5.1); SODIUM SERUM 148 mmol/L (136-145); UREA NITROGEN, BLOOD 31 mg/dL (7-18)
[2022-03-29 08:00] VITALS: BP 132/83
[2022-03-29] MEDS: POLYETHYLENE GLYCOL 3350 17 GM POWD.PACK PO SCH (09:23)
[2022-03-29] MEDS: MIDODRINE HCL (5MG) 5 MG TABLET PO SCH ×3 (09:24→17:00)
[2022-03-29] MEDS: PANTOPRAZOLE 40 MG VIAL IV SCH (09:24)
[2022-03-29] MEDS: ENSURE ENLIVE 237 ML LIQUID (VANILLA) PO SCH ×2 (14:37→17:49)
[2022-03-29 16:00] VITALS: BP 113/71
--- NOTE | 2022-03-29 18:41 | NUR ---
MS MIKE OPENING NOTES PATIENT AWAKE IN BED, A/Ox3-4, WITH MOMENTS OF CONFUSION, STABLE ON ROOM AIR. PATIENT SHOWS NO S/S OF RESPIRATORY DISTRESS. NO C/O OF CARDIAC DISTRESS. IV ACCESS RFA #22 SL, INTACT AND PATENT. NO S/S OF INFILTRATION. PATIENT IS AMBULATORY AND USES BEDSIDE COMMODE. PATIENT SKIN IS INTACT, ABDOMEN HAS SURGERY SITE, DRESSING INTACT. ALL PRESCRIBED MEDICATION ADMINISTERED. SAFETY MEASURES MAINTAINED: BED LOCKED AND IN LOWEST POSITION, SIDE RAILS UP x2, CALL LIGHT WITHIN REACH, HOB ELEVATED AND BEDSIDE TABLE WITHIN REACH. WILL ENDORSE TO NEXT SHIFT ANY BAILEY. Addendum: 03/29/22 at 1841 by SERG PERES RN ADDENDUM: CLOSING NOTE
--- NOTE | 2022-03-29 19:43 | NUR ---
MS RN OPENING NOTES; RECEIVED PATIENT AWAKE IN BED, BED IN LOW POSITION, CALL LIGHTS WITHIN REACH, NO COMPLAIN OF PAIN AND DISCOMFORT AT THIS TIME, ON ROOM AIR SATURATING WELL, PATIENT IS A/O4 AMBULATORY TO BSC, ABLE TO MAKE NEEDS KNOWN, IV LINE AT RFA#22SL PATIENT KEPT CLEAN AND DRY ALL NEEDS MET, WILL CONTINUE TO MONITOR.
[2022-03-29 20:00] VITALS: BP 129/74
[2022-03-29 23:37] LABS: BILIRUBIN,URINE SMALL (NEGATIVE); COLOR,URINE YELLOW (YELLOW); LEUKOCYTE ESTERASE ,URINE NEGATIVE (NEGATIVE); NITRITE, URINE NEGATIVE (NEGATIVE); PROTEIN,URINE TRACE mg/dl (NEGATIVE); UGLUCOSE NEGATIVE (NEGATIVE); UROBILINOGEN,URINE 0.2 EU/dL (0.2)
[2022-03-30] MEDS: MEROPENEM 1 G in IV NS 0.9% 100 ML IV SCH ×2 (02:21→12:36)
[2022-03-30] MEDS: IBUPROFEN 400 MG TABLET PO SCH ×3 (04:12→20:24)
[2022-03-30] MEDS: GABAPENTIN 300 MG CAPSULE PO SCH ×3 (04:12→20:24)
[2022-03-30] MEDS: ACETAMINOPHEN 325 MG TABLET PO SCH ×3 (04:13→20:24)
[2022-03-30 06:56] LABS: BASOPHILS % (AUTO) 0.1 % (0.0-2.0); EOSINOPHILS % (AUTO) 1.3 % (0.0-6.0); HEMATOCRIT 38 % (39-51); HEMOGLOBIN 12.7 g/dL (13.5-17.5); LYMPHOCYTES # (AUTO) 0.6 K/uL (0.8-4.8); LYMPHOCYTES % (AUTO) 5.2 % (20.0-44.0); MEAN CORPUSCULAR HGB CONC 34 g/dl (31.0-36.0); MEAN CORPUSCULAR VOLUME 99 fL (80-96); MONOCYTES # (AUTO) 0.7 K/uL (0.1-1.30); MONOCYTES % (AUTO) 6.9 % (2.0-12.0); NEUTROPHILS # (AUTO) 9.3 K/uL (1.8-8.9); NEUTROPHILS % (AUTO) 86.5 % (43.0-81.0); PLATELET COUNT (AUTO) 185 K/uL (150-450); RED BLOOD CELL COUNT(AUTO) 3.83 MIL/uL (4.5-6.0); WHITE BLOOD COUNT (AUTO) 10.8 K/uL (4.3-11.0)
[2022-03-30 07:22] LABS: CALCIUM, SERUM 8.7 mg/dL (8.5-10.1); CREATININE 1.3 mg/dL (0.6-1.3); MAGNESIUM 2.4 mg/dL (1.8-2.4); PHOSPHORUS 2.9 mg/dL (2.5-4.9); POTASSIUM 3.7 mmol/L (3.5-5.1)
--- NOTE | 2022-03-30 07:40 | NUR ---
MS RN CLOSING NOTES: RECEIVED PATIENT AWAKE IN BED, BED IN LOW POSITION CALL LIGHTS WITHIN REACH, NO COMPLAIN OF PAIN AND DISCOMFORT AT THIS TIME, ON ROOM AIR SATURATING WELL, PATIENT IS AMBULATORY REMIND TO USE THE CALL LIGHTS WHEN NEEDED ASSISTANCE, PATIENT KEPT CLEAN AND DRY ALL NEEDS MET ENDORSE TO INCOMING SHIFT.
--- NOTE | 2022-03-30 07:58 | NUR ---
RN OPENING NOTE PATIENT AWAKE IN BED RESTING. A/O X 4. NO S/S OF PAIN NOTED AT THIS TIME. ON ROOM AIR, NO DISTRESS OR SHORTNESS OF BREATH NOTED. IV ACCESS RFA #22G INTACT PATENT AND FLUSHING WELL. FALL AND SAFETY MEASURES IN PLACE, BED ALARM ON, BED IN LOW AND LOCK POSITION, CALL LIGHT AND TABLE WITHIN EASY REACH, SIDE RAILS UP X2. WILL CONTINUE TO MONITOR.
[2022-03-30 08:00] VITALS: BP 149/82
[2022-03-30] MEDS: ENSURE ENLIVE 237 ML LIQUID (VANILLA) PO SCH ×3 (08:00→17:00)
[2022-03-30] MEDS: PANTOPRAZOLE 40 MG TABLET.DR PO SCH (08:45)
[2022-03-30] MEDS: POLYETHYLENE GLYCOL 3350 17 GM POWD.PACK PO SCH (08:45)
[2022-03-30] MEDS: MIDODRINE HCL (5MG) 5 MG TABLET PO SCH ×3 (10:13→16:27)
[2022-03-30 16:00] VITALS: BP 106/72
--- NOTE | 2022-03-30 18:35 | NUR ---
RN CLOSING NOTE PATIENT AWAKE IN BED RESTING. A/O X 4. NO S/S OF PAIN NOTED AT THIS TIME. ON ROOM AIR, NO DISTRESS OR SHORTNESS OF BREATH NOTED. IV ACCESS RFA #22G INTACT PATENT AND FLUSHING WELL. ALL SCHEDULE MEDICATIONS ADMINISTERED. FALL AND SAFETY MEASURES IN PLACE, BED ALARM ON, BED IN LOW AND LOCK POSITION, CALL LIGHT AND TABLE WITHIN EASY REACH, SIDE RAILS UP X2. WILL ENDORSE TO SCHEDULING MANAGER.
--- NOTE | 2022-03-30 19:15 | NUR ---
MS/RN OPENING NOTE RECEIVED PATIENT AMBULATING TO RESTROOM. PATIENT IS ALERT AND ORIENTED X 4. ABLE TO MAKE NEEDS KNOWN. ENDORSES ABDOMINAL BLOATING - PER AM RN SHE WILL ADMINISTER PRN MEDICATION. FAMILY CURRENTLY AT BEDSIDE. PATIENT CONTINUES ON ROOM AIR WITH NO S/SX OF RESPIRATORY DISTRESS NOTED. IV ACCESS TO RIGHT FOREARM #22G INTACT, PATENT AND SALINE LOCKED. CONTINUES ON IV ABX. CONTINUES ON REGULAR DIET WITH NO S/SX OF NAUSEA/VOMITING NOTED. SURGICAL DRESSING TO ABDOMEN C/D/I. PATIENT IS AMBULATORY WITH STEADY GAIT. CALL LIGHT WITHIN REACH. ASPIRATION, FALL AND SAFETY PRECAUTIONS MAINTAINED. ALL NEEDS ATTENDED TO AT THIS TIME.
[2022-03-30] MEDS ORDERED: MAG HYDROX/AL HYDROX/SIMETH 30 ML UDC PO PRN (19:30)
[2022-03-30 20:00] VITALS: BP 136/77
--- NOTE | 2022-03-30 21:15 | NUR ---
MS/RN NOTE SPOKE TO LAB WHO STATES WE HAVE TO COLLECT A NEW URINE SAMPLE FOR URINE CULTURE. WILL ATTEMPT TO COLLECT TONIGHT.
--- NOTE | 2022-03-30 21:48 | NUR ---
MS/RN NOTE SPOKE WITH BOTH DR. LOERA AND DR. DE LA FUENTE REGARDING PATIENTS C/O PAINFUL BLADDER AND URINARY FREQUENCY. NEW ORDERS FOR CIPRO 500MG PO BID X 5 DAYS AND PYRIDIUM 200MG PO Q8HRS. ORDERS INPUTTED AND CARRIED OUT.
[2022-03-30] MEDS ORDERED: PHENAZOPYRIDINE HCL 200 MG TABLET PO PRN (22:00)
[2022-03-31] MEDS: PHENAZOPYRIDINE HCL 200 MG TABLET PO SCH ×3 (01:03→12:11)
[2022-03-31] MEDS: MEROPENEM 1 G in IV NS 0.9% 100 ML IV SCH ×2 (01:03→12:12)
--- NOTE | 2022-03-31 03:00 | NUR ---
MS/RN NOTE URINE COLLECTED FOR URINE CULTURE VIA CLEAN CATCH AND SENT TO LAB.
[2022-03-31] MEDS: IBUPROFEN 400 MG TABLET PO SCH ×2 (05:42→12:12)
[2022-03-31] MEDS: GABAPENTIN 300 MG CAPSULE PO SCH ×2 (05:42→12:11)
[2022-03-31] MEDS: ACETAMINOPHEN 325 MG TABLET PO SCH ×2 (05:43→12:11)
--- NOTE | 2022-03-31 06:20 | NUR ---
MS/RN CLOSING NOTE PATIENT CURRENTLY RESTING IN BED. ALERT AND ORIENTED X 4. ABLE TO MAKE NEEDS KNOWN. DENIES PAIN AT THIS TIME. CONTINUES ON ROOM AIR WITH NO S/SX OF RESPIRATORY DISTRESS NOTED. IV ACCESS TO RIGHT FOREARM #22G INTACT, PATENT AND SALINE LOCKED. CONTINUES ON IV ABX. CONTINUES ON REGULAR DIET WITH NO S/SX OF NAUSEA/VOMITING NOTED. SURGICAL DRESSING TO ABDOMEN C/D/I. PATIENT IS AMBULATORY WITH STEADY GAIT. CALL LIGHT WITHIN REACH. ASPIRATION, FALL AND SAFETY PRECAUTIONS MAINTAINED. WILL ENDORSE PLAN OF CARE TO ONCOMING SHIFT RN
[2022-03-31 07:07] LABS: BASOPHILS % (AUTO) 0.2 % (0.0-2.0); EOSINOPHILS % (AUTO) 2.1 % (0.0-6.0); HEMATOCRIT 35 % (39-51); HEMOGLOBIN 11.9 g/dL (13.5-17.5); LYMPHOCYTES # (AUTO) 0.4 K/uL (0.8-4.8); LYMPHOCYTES % (AUTO) 4.4 % (20.0-44.0); MEAN CORPUSCULAR HGB CONC 34 g/dl (31.0-36.0); MEAN CORPUSCULAR VOLUME 97 fL (80-96); MONOCYTES # (AUTO) 0.5 K/uL (0.1-1.30); MONOCYTES % (AUTO) 5.6 % (2.0-12.0); NEUTROPHILS # (AUTO) 8.3 K/uL (1.8-8.9); NEUTROPHILS % (AUTO) 87.7 % (43.0-81.0); PLATELET COUNT (AUTO) 233 K/uL (150-450); WHITE BLOOD COUNT (AUTO) 9.5 K/uL (4.3-11.0)
[2022-03-31 07:20] LABS: CALCIUM, SERUM 8.5 mg/dL (8.5-10.1); CARBON DIOXIDE 24 mmol/L (21-32); CHLORIDE 107 mmol/L (98-107); CREATININE 1.7 mg/dL (0.6-1.3); GLUCOSE 92 mg/dL (74-106); MAGNESIUM 2.2 mg/dL (1.8-2.4); PHOSPHORUS 2.9 mg/dL (2.5-4.9); POTASSIUM 3.7 mmol/L (3.5-5.1); SODIUM SERUM 141 mmol/L (136-145); UREA NITROGEN, BLOOD 34 mg/dL (7-18)
--- NOTE | 2022-03-31 07:50 | NUR ---
RN OPENING NOTE PATIENT RECEIVED AWAKE AND UP IN CHAIR. A/O X 4 & AMBULATING W/O ASSIST THROUGHOUT ROOM AND TO/FROM BATHROOM. NO S/SX OF DISTRESS OR PAIN REPORTED OR OBSERVED AT THIS TIME. REMAINS ON ROOM AIR WITH SOB OBSERVED. IV ACCESS TO RFA REMAINS INTACT & PATENT. PATIENT SCHEDULED FOR DISCHARGE TO SNF FACILITY TODAY ON SHIFT; WILL FOLLOW UP. SAFETY MEASURES IN PLACE WITH BED IN LOWEST AND LOCKED. SIDERAIL UP X2 AND CALL-LIGHT WITH REACH. WILL CONTINUE TO MONITOR.
[2022-03-31 08:00] VITALS: BP 138/60
[2022-03-31] MEDS: ENSURE ENLIVE 237 ML LIQUID (VANILLA) PO SCH (08:00)
[2022-03-31] MEDS: POLYETHYLENE GLYCOL 3350 17 GM POWD.PACK PO SCH (09:00)
[2022-03-31] MEDS ORDERED: CIPROFLOXACIN HCL 500 MG TABLET PO SCH (09:00)
[2022-03-31] MEDS: PANTOPRAZOLE 40 MG TABLET.DR PO SCH (09:10)
[2022-03-31] MEDS: MIDODRINE HCL (5MG) 5 MG TABLET PO SCH ×2 (09:10→12:12)
[2022-03-31] MEDS ORDERED: GABA300C PO (11:12)
[2022-03-31] MEDS ORDERED: PANT40TA49 PO (11:12)
[2022-03-31] MEDS ORDERED: MERO1VIA23 IV (11:12)
[2022-03-31] MEDS ORDERED: ACET325T53 PO (11:12)
[2022-03-31] MEDS ORDERED: MAG30ORA PO (11:12)
[2022-03-31] MEDS ORDERED: POLY17PO29 PO (11:12)
[2022-03-31] MEDS ORDERED: PHEN-895 PO (11:12)
[2022-03-31] MEDS ORDERED: MIDO5TAB4 PO (11:12)
[2022-03-31] MEDS ORDERED: CIPR-262 PO (11:12)
[2022-03-31] MEDS ORDERED: IBUP-1953 PO (11:12)
[2022-03-31 12:12] VITALS: BP 128/64
--- NOTE | 2022-03-31 14:36 | NUR ---
TRANSLATOR/INTERPRETER NOTE PATIENT DISCHARGED FROM FACILITY VIA AMBULANCE @ 6892. ACCOMPANIED BY SON
== END 2022-03-31 14:45 | DRG 329 ==
LOC: ER 23:59 → TRANSITION 03-23 02:57 → MED 03-23 07:41 → ICU 03-23 19:40 → MED 03-26 17:00
PROVIDERS: ADMIT Nurse Practitioner Acute Care; ATTEND Nurse Practitioner Acute Care
PROC: 0DBB0ZZ Excision of Ileum, Open Approach (ICD-10-PCS; principal; 2022-03-23)
DX: K56.51 Intestinal adhesions [bands], with partial obstruction (principal); J18.9 Pneumonia, unspecified organism; K55.021 Focal (segmental) acute infarction of small intestine; N17.0 Acute kidney failure with tubular necrosis; E87.0 Hyperosmolality and hypernatremia; K46.0 Unspecified abdominal hernia with obstruction, without gangrene; Z20.822 Contact with and (suspected) exposure to COVID-19; Z95.0 Presence of cardiac pacemaker; K46.9 Unspecified abdominal hernia without obstruction or gangrene; I12.9 Hypertensive chronic kidney disease with stage 1 through stage 4 chronic kidney disease, or unspecified chronic kidney disease; N18.9 Chronic kidney disease, unspecified; E11.22 Type 2 diabetes mellitus with diabetic chronic kidney disease; I25.10 Atherosclerotic heart disease of native coronary artery without angina pectoris; E87.6 Hypokalemia; D70.9 Neutropenia, unspecified; G31.84 Mild cognitive impairment of uncertain or unknown etiology; D69.6 Thrombocytopenia, unspecified; Y95 Nosocomial condition; Z87.442 Personal history of urinary calculi
CPT/HCPCS: 36415; 71045-TC; 74250-TC; 76770-TC; 80048-TC; 80076-TC; 83605-TC; 83690-TC; 83735-TC; 84100-TC; 84484-TC; 85025-TC; 87086-TC; 88307-TC; 94799-TC; 97116-TC; 97530-TC; A6253; A9563; C9113; G0378; J0330; J0690; J1100; J1170; J1885; J2185; J2250; J2270; J2370; J2405; J2543; J2704; J2765; J3010; J3430; J3490; J7030; J7042; J7050; J7060; J7120; Q9963

== ENCOUNTER 2022-04-05 21:06 | Inpatient (IN) | payer MEDICARE ==
[~2022-04-05] VITALS: Ht 175.3 cm; Wt 65.3 kg
[~2022-04-05 21:06] MED LIST: ACET325T53 PO; ASPI-1169 PO; BENA10TA74 PO; CIPR-262 PO; GABA300C PO; IBUP-1953 PO; MAG30ORA PO; MERO1VIA23 IV; MIDO5TAB4 PO; PANT40TA49 PO; PHEN-895 PO; POLY17PO29 PO
--- NOTE | 2022-04-05 21:32 | NUR ---
BIB SON FROM HOME A/O X1 C/O ABD PAIN RAD TO BACK, DIFF, URINATING, SWELLING AROUND SCROTUM AND BLE SWELLING.
--- NOTE | 2022-04-05 21:45 | NUR ---
URINE COLLECTED AND SENT TO LAB
--- NOTE | 2022-04-05 21:48 | NUR ---
IV #20 INSERTED TO LAC, PATENT, INTACT, WITH GOOD BLOOD RETURN
[2022-04-05] MEDS ORDERED: CT SWABBABLE VALVE TRANS SET 1 EA INFUS.SET MC ONE (21:59)
[2022-04-05] MEDS ORDERED: IV NS 0.9% 250 ML IV ONE (21:59)
[2022-04-05] MEDS ORDERED: IOHEXOL-300 100 ML VIAL IV ONE (21:59)
[2022-04-05 22:12] LABS: MONOCYTES # (AUTO) 0.7 K/uL (0.1-1.30); NEUTROPHILS # (AUTO) 6.5 K/uL (1.8-8.9); WHITE BLOOD COUNT (AUTO) 7.6 K/uL (4.3-11.0)
[2022-04-05 22:28] LABS: ALANINE AMINOTRANSFERASE 31 U/L (12-78); ALBUMIN 2.4 g/dL (3.4-5.0); ALKALINE PHOSPHATASE 73 U/L (46-116); ASPARTATE AMINOTRANSFERASE 37 U/L (15-37); BILIRUBIN,DIRECT 0.2 mg/dL (0.0-0.2); BILIRUBIN,TOTAL 0.6 mg/dL (0.2-1.0); CALCIUM, SERUM 7.3 mg/dL (8.5-10.1); CARBON DIOXIDE 15 mmol/L (21-32); CHLORIDE 86 mmol/L (98-107); GLUCOSE 91 mg/dL (74-106); POTASSIUM 5.8 mmol/L (3.5-5.1); TOTAL PROTEIN, SERUM 6.1 g/dL (6.4-8.2); UREA NITROGEN, BLOOD 73 mg/dL (7-18)
--- NOTE | 2022-04-05 22:33 | NUR ---
US TECH AT PT'S BEDSIDE
[2022-04-05 22:35] LABS: CREATININE 10.2 mg/dL (0.6-1.3); SODIUM SERUM 117 mmol/L (136-145)
--- NOTE | 2022-04-05 22:46 | NUR ---
COVID SWAB COLLECTED AND SENT
[2022-04-05] MEDS ORDERED: IV NS 0.9% 1,000 ML IV ONE (23:00)
[2022-04-05 23:01] LABS: BILIRUBIN,URINE NEGATIVE (NEGATIVE); COLOR,URINE YELLOW (YELLOW); LEUKOCYTE ESTERASE ,URINE NEGATIVE (NEGATIVE); PH,URINE 5.5 (5.0-8.0); PROTEIN,URINE TRACE mg/dl (NEGATIVE); UGLUCOSE 100 MG/DL mg/dL (NEGATIVE)
[2022-04-05 23:04] LABS: NITRITE, URINE NEGATIVE (NEGATIVE)
[2022-04-05 23:20] LABS: BASOPHILS % (AUTO) 0.5 % (0.0-2.0); EOSINOPHILS % (AUTO) 0.5 % (0.0-6.0); HEMATOCRIT 32 % (39-51); HEMOGLOBIN 10.9 g/dL (13.5-17.5); LYMPHOCYTES # (AUTO) 0.4 K/uL (0.8-4.8); LYMPHOCYTES % (AUTO) 4.8 % (20.0-44.0); MEAN CORPUSCULAR HGB CONC 34 g/dl (31.0-36.0); MEAN CORPUSCULAR VOLUME 96 fL (80-96); MONOCYTES % (AUTO) 9.4 % (2.0-12.0); NEUTROPHILS % (AUTO) 84.8 % (43.0-81.0); PLATELET COUNT (AUTO) 345 K/uL (150-450)
[2022-04-05] MEDS ORDERED: ALBUMIN 25% 50 ML IV ONE (23:29)
[2022-04-05] MEDS ORDERED: ALBUMIN 25% 12.5 GM/50 ML BOTTLE IV ONE (23:30)
[2022-04-05] MEDS: IV Sodium Chloride 3% 500 ML 500 ML IV ONE (23:41)
[2022-04-06] VITALS (41 sets, daily range): BP systolic 89–136; BP diastolic 28–76
--- NOTE | 2022-04-06 00:20 | NUR ---
RAC #18G S/L; PATENT AND INTACT.
[2022-04-06] MEDS ORDERED: LIDOCAINE 2% JEL UROJET 10 ML MM ONE ×2 (00:22→00:30)
--- NOTE | 2022-04-06 00:23 | NUR ---
REC'D A CALL FROM DR JERRY DE LA FUENTE WITH AN AORDER TO PLACE F/C. NOTED
--- NOTE | 2022-04-06 00:27 | NUR ---
F/C 16 FR INSERTED; URINE COLLECTED AND SENT TO LAB
[2022-04-06] MEDS ORDERED: MORPHINE SULFATE INJ 2 MG/ML DISP.SYRIN IV PRN (01:00)
[2022-04-06] MEDS ORDERED: Z GUARD REMEDY 4 OZ OINT TP PRN (01:00)
[2022-04-06] MEDS ORDERED: ACETAMINOPHEN 325 MG TABLET PO PRN (01:00)
[2022-04-06] MEDS ORDERED: ONDANSETRON HCL/PF 4 MG/2 ML VIAL IVP PRN (01:00)
[2022-04-06] MEDS ORDERED: ZOLPIDEM TARTRATE 5 MG TABLET PO PRN (01:00)
[2022-04-06 01:07] LABS: LIPASE 2375 U/L (73-393)
--- NOTE | 2022-04-06 01:15 | NUR ---
ICU/CHANGE MANAGEMENT LEAD RECIEVED REPORT FROM ER NURSE. AWAIT PT'S ARRIVAL TO UNIT.
--- NOTE | 2022-04-06 01:32 | NUR ---
400ml rayne colored urine output via F/C
--- NOTE | 2022-04-06 01:40 | NUR ---
pt admitted via acls protocol
--- NOTE | 2022-04-06 01:45 | NUR ---
ICU/CLOTH SHRINKING TESTER PT PLACED ON MONITOR. RECIEVED ORDERS FROM NIALL DE LA FUENTE. WOUND CARE AND PHOTO DONE.
[2022-04-06] MEDS ORDERED: CEFTRIAXONE 1 G VIAL ONE (01:52)
[2022-04-06] MEDS: PANTOPRAZOLE 40 MG VIAL IV SCH ×2 (01:56→09:17)
[2022-04-06] MEDS: GABAPENTIN 300 MG CAPSULE PO SCH ×3 (01:56→17:26)
[2022-04-06] MEDS: ACETAMINOPHEN 325 MG TABLET PO SCH ×3 (01:56→17:00)
[2022-04-06] MEDS: CEFTRIAXONE 1 G in IV D5W 50 ML IV SCH ×2 (01:56→20:23)
[2022-04-06] MEDS: IV NS 0.9% 1,000 ML IV PRN ×3 (01:57→20:42)
[2022-04-06] MEDS ORDERED: HEPARIN INFUSION/D5W 500 ML IV PRN ×2 (02:00→19:30)
--- NOTE | 2022-04-06 02:00 | NUR ---
ICU/TAPE TRANSFERRER 0200-LABS DONE FOR ORDERING DNP SUDHAKAR 0215-ABG DONE AND SENT TO SUDHAKAR NO NEW ORDERS
--- NOTE | 2022-04-06 02:22 | NUR ---
ICU/RN: ABG RESULTS RELAYED TO DR. DE LA FUENTE NO NEW ORDERS.
[2022-04-06 02:24] LABS: ABG BASE EXCESS -12.5 mmol/L; ABG OXYGEN SATURATION 96.8 % (92.0-98.5); ABG PCO2 20.3 mmHg (35.0-45.0); ABG PH 7.356 (7.350-7.450); ABG PO2 100.3 mmHg (75.0-100.0); AaDO2 75.4 mmHg; MetHb 0.1 % (0.0-1.5); O2Hb 96.7 % (94.0-97.0); SITE, ABG Right Radial; VENT MODE, BG N/C 28%
[2022-04-06] MEDS ORDERED: ALBUMIN 25% 100 ML IV ONE (02:27)
[2022-04-06] MEDS: ALBUMIN 25% 25 GM in PREMIX 1 EA IV SCH ×4 (02:28→20:11)
[2022-04-06] MEDS ORDERED: HEPARIN SODIUM, PORCINE 5000 UNITS/1 ML VIAL IV ONE ×2 (02:30→21:00)
--- NOTE | 2022-04-06 02:30 | NUR ---
ICU/CODE ENFORCEMENT SUPERVISOR 0200-3%NS ORDERED BY SUDHAKAR, NOT AVAILABLE, CALLED SUDHAKAR TO MAKE HIM AWARE, SUDHAKAR SAID IT HAD TO BE GIVEN. HOUSE SUP CALLED PHARMACY SPINNING FRAME FIXER FOR 3%NS. 0215-SAID SPINN[facility]AME [facility] HOUR, SO @0320.
--- NOTE | 2022-04-06 02:36 | NUR ---
MED NOTE: ALL MEDICATIONS GIVEN UNDER VERIFIED DOSES.
[2022-04-06 02:40] LABS: BASOPHILS # (AUTO) 0.1 K/uL (0.0-0.2); BASOPHILS % (AUTO) 0.7 % (0.0-2.0); EOSINOPHILS % (AUTO) 0.7 % (0.0-6.0); HEMATOCRIT 32 % (39-51); HEMOGLOBIN 10.9 g/dL (13.5-17.5); LYMPHOCYTES # (AUTO) 0.3 K/uL (0.8-4.8); LYMPHOCYTES % (AUTO) 4.5 % (20.0-44.0); MEAN CORPUSCULAR HGB CONC 34 g/dl (31.0-36.0); MEAN CORPUSCULAR VOLUME 96 fL (80-96); MONOCYTES # (AUTO) 0.5 K/uL (0.1-1.30); MONOCYTES % (AUTO) 7.2 % (2.0-12.0); NEUTROPHILS # (AUTO) 6.6 K/uL (1.8-8.9); NEUTROPHILS % (AUTO) 86.9 % (43.0-81.0); PLATELET COUNT (AUTO) 328 K/uL (150-450); RED BLOOD CELL COUNT(AUTO) 3.32 MIL/uL (4.5-6.0); WHITE BLOOD COUNT (AUTO) 7.5 K/uL (4.3-11.0)
[2022-04-06 03:00] LABS: CALCIUM, SERUM 7.1 mg/dL (8.5-10.1); CARBON DIOXIDE 16 mmol/L (21-32); CHLORIDE 90 mmol/L (98-107); GLUCOSE 79 mg/dL (74-106); MAGNESIUM 2.3 mg/dL (1.8-2.4); POTASSIUM 5.7 mmol/L (3.5-5.1); SODIUM SERUM 122 mmol/L (136-145); UREA NITROGEN, BLOOD 71 mg/dL (7-18)
[2022-04-06 03:07] LABS: CREATININE, URINE 37.3 MG/DL (30.0-125.0)
[2022-04-06 03:11] LABS: CREATININE 9.1 mg/dL (0.6-1.3)
[2022-04-06 03:15] LABS: PROSTATE SPECIFIC ANTIGEN SCR 20.68 ng/mL (0.00-4.00)
--- NOTE | 2022-04-06 03:30 | NUR ---
ICU/SUPERVISOR URANIUM PROCESSING [facility] ID IN THE HOSPITAL. HEPARIN STARTED FOR DVT PRECAUTIONS.
[2022-04-06 03:37] LABS: THYROID STIMULATING HORMONE 0.574 uIU/mL (0.358-3.74)
[2022-04-06] MEDS: IV Sodium Chloride 3% 500 ML 500 ML IV ONE (03:55)
--- NOTE | 2022-04-06 04:24 | NUR ---
ICU/FLAT FINISHER IVF WITH 3%NA WAS STARTED AND WILL ANGOLAN IN 5 HOURS.
--- NOTE | 2022-04-06 05:30 | NUR ---
ICU/AUTOMOTIVE HARDWARE ENGINEER NOTICED THAT NIETO HAD TURNED RED. PT IS CURRENTLY ON A HEPARIN DRIP. CALLED NIALL DE LA FUENTE ABOUT THIS. WAITING FOR CALL BACK.
[2022-04-06] MEDS: SUCRALFATE 1 G/10 ML UDC PO SCH ×3 (06:30→17:25)
--- NOTE | 2022-04-06 06:55 | NUR ---
ICU/APPOINTMENT CLERK SUDHAKAR CALLED BACK SAID TO STOP HEPARIN AND HAND IRRIGATE NIETO. CHARGE NURSE AWARE OF THIS.
--- NOTE | 2022-04-06 07:20 | NUR ---
RECEIVED PT. ASLEEP ON BED COMFORTABLY, NO SSx OF DISTRESS NOTED AT THIS TIME; BEDSIDE REPORT GIVEN BY NURSE ONEAL, HEPARIN DRIP HAS BEEN DISCONTINUED, HAND/MANUAL F/C IRRIGATION DONE AT 0700AM PER ENDORSEMENT. IVF RUNNING PER ORDERS, F/C DRAINING RED-PINKISH URINE PER GRAVITY. VS STABLE AT THIS TIME. CALL LIGHT IN REACH, WILL CONTINUE TO MONITOR PT.
[2022-04-06 07:49] LABS: CALCIUM, SERUM 7.3 mg/dL (8.5-10.1); CARBON DIOXIDE 15 mmol/L (21-32); CHLORIDE 101 mmol/L (98-107); CREATININE 6.6 mg/dL (0.6-1.3); GLUCOSE 91 mg/dL (74-106); MAGNESIUM 2.3 mg/dL (1.8-2.4); POTASSIUM 5.3 mmol/L (3.5-5.1); SODIUM SERUM 132 mmol/L (136-145); UREA NITROGEN, BLOOD 61 mg/dL (7-18)
--- NOTE | 2022-04-06 08:05 | NUR ---
RT PATIENT REMOVED FROM SD AND REMAINS ON ROOM AIR SPO2 98%
--- NOTE | 2022-04-06 09:08 | NUR ---
MESSAGED DNP-SUDHAKAR IF DUE ASPIRIN IS TO BE GIVEN AND PT. STILL DRAINING RED-PINKISH URINE VIA F/C. AWAITING RESPONSE. CHARGE NURSE AWARE OF THIS.
[2022-04-06] MEDS: DUTASTERIDE (0.5 MG) 0.5 MG CAPSULE PO SCH (09:17)
[2022-04-06] MEDS: BETHANECHOL CHLORIDE (10 MG) 10 MG TABLET PO SCH ×3 (09:17→17:25)
[2022-04-06] MEDS: MIDODRINE HCL (5MG) 5 MG TABLET PO SCH ×3 (09:18→17:26)
--- NOTE | 2022-04-06 10:18 | NUR ---
FOLLOW-UP MESSAGE SENT TO PATI IF DUE ASPIRIN IS TO BE GIVEN AND PT. STILL DRAINING RED-PINKISH URINE VIA F/C. STILL AWAITING RESPONSE FROM MD. CHARGE NURSE AWARE.
--- NOTE | 2022-04-06 10:55 | NUR ---
PRN HAND IRRIGATION OF F/C DONE , PER ORDER/PROTOCOL; PT. TOLERATED THE PROCEDURE. DENIES DISCOMFORT.
--- NOTE | 2022-04-06 11:00 | NUR ---
PER DR. SUDHAKAR COTTO TO GIVE ASPIRIN DUE TODAY.
[2022-04-06] MEDS: ASPIRIN 81 MG TAB.CHEW PO SCH (11:08)
[2022-04-06 11:19] LABS: CALCIUM, SERUM 7.5 mg/dL (8.5-10.1); CARBON DIOXIDE 16 mmol/L (21-32); CHLORIDE 106 mmol/L (98-107); CREATININE 5.7 mg/dL (0.6-1.3); GLUCOSE 96 mg/dL (74-106); MAGNESIUM 2.5 mg/dL (1.8-2.4); PHOSPHORUS 6.4 mg/dL (2.5-4.9); POTASSIUM 5.1 mmol/L (3.5-5.1); SODIUM SERUM 136 mmol/L (136-145); UREA NITROGEN, BLOOD 54 mg/dL (7-18)
[2022-04-06 15:31] LABS: CALCIUM, SERUM 8.1 mg/dL (8.5-10.1); CARBON DIOXIDE 17 mmol/L (21-32); CHLORIDE 111 mmol/L (98-107); CREATININE 3.8 mg/dL (0.6-1.3); GLUCOSE 119 mg/dL (74-106); MAGNESIUM 2.7 mg/dL (1.8-2.4); PHOSPHORUS 5.4 mg/dL (2.5-4.9); POTASSIUM 5.2 mmol/L (3.5-5.1); SODIUM SERUM 141 mmol/L (136-145); UREA NITROGEN, BLOOD 46 mg/dL (7-18)
[2022-04-06] MEDS ORDERED: SODIUM POLYSTYRENE SULFONATE 15 G/60 ML BOTTLE PO ONE (16:30)
--- NOTE | 2022-04-06 17:50 | NUR ---
NIALL DE LA FUENTE AT THE BEDSIDE SEEN PT. ,WITH PATIENT'S SON-DEDRA AT BEDSIDE
--- NOTE | 2022-04-06 19:00 | NUR ---
DNP-SUDHAKAR WAS NOTIFIED OF THE LOWER EXTREMITIES VENOUS RESULTED POSITIVE DVT -LEFT SUPERFICIAL FEMORAL VEIN DISTAL. CHARGE NURSE AWARE OF THIS
[2022-04-06 19:10] LABS: CALCIUM, SERUM 8.4 mg/dL (8.5-10.1); CARBON DIOXIDE 21 mmol/L (21-32); CHLORIDE 112 mmol/L (98-107); GLUCOSE 125 mg/dL (74-106); MAGNESIUM 2.6 mg/dL (1.8-2.4); PHOSPHORUS 4.5 mg/dL (2.5-4.9); POTASSIUM 4.8 mmol/L (3.5-5.1); SODIUM SERUM 144 mmol/L (136-145); UREA NITROGEN, BLOOD 37 mg/dL (7-18)
--- NOTE | 2022-04-06 19:15 | NUR ---
DNP-SUDHAKAR WITH NEW ORDERS OF HEPARIN DRIP. CHARGE NURSE AWARE. BEDSIDE REPORT GIVEN TO SARITA
--- NOTE | 2022-04-06 19:20 | NUR ---
RN Note Received patient in bed, awake, alert, and verbally responsive. Breathing even and unlabored. on room air. Denies sob. No cough noted. HOB elevated 30 degrees. On tele monitoring. denies chest pain. skin is warm and dry to touch. 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 no redness noted. skin is intact. Right ac 18G PIV and left AC 20G piv intact. currently infusing ns at 75 cc/hr. no infiltration noted. Indwelling matos catheter noted. Draining by gravity. No visible hematuria noted. assisted with turning and repositioning, bed low, in locked position. call light within reach.
[2022-04-06] MEDS ORDERED: IV NS 0.9% 250 ML IV PRN (20:00)
--- NOTE | 2022-04-06 21:00 | NUR ---
RN note Heparin drip initiated per non-ACS protocol at 1350 units/hr with 5800 Units IV push. APTT of 33.4 Patient with positive DVT in distal left superficial femoral vein. No bleeding at this time. Will continue to monitor.
[2022-04-06] MEDS: TAMSULOSIN 0.4 MG CAP.SR.24H PO SCH (21:07)
[2022-04-06 23:20] LABS: CALCIUM, SERUM 8.4 mg/dL (8.5-10.1); CARBON DIOXIDE 21 mmol/L (21-32); CHLORIDE 112 mmol/L (98-107); CREATININE 2.5 mg/dL (0.6-1.3); GLUCOSE 112 mg/dL (74-106); MAGNESIUM 2.6 mg/dL (1.8-2.4); PHOSPHORUS 3.9 mg/dL (2.5-4.9); POTASSIUM 4.7 mmol/L (3.5-5.1); SODIUM SERUM 145 mmol/L (136-145); UREA NITROGEN, BLOOD 32 mg/dL (7-18)
--- NOTE | 2022-04-06 23:45 | NUR ---
RN NOTE Patient slowly developing hematuria. No clots noted. Informed Ker[place]. Per md order, stop heparin drip, irrigate bladder to prevent formation of blood clot. New order noted and carried out. Will continue to monitor for blood clots.
[2022-04-07] VITALS (19 sets, daily range): BP systolic 119–150; BP diastolic 62–82
[2022-04-07] MEDS: SUCRALFATE 1 G/10 ML UDC PO SCH ×2 (00:19→05:21)
[2022-04-07] MEDS: GABAPENTIN 300 MG CAPSULE PO SCH ×3 (00:19→16:35)
[2022-04-07] MEDS: ACETAMINOPHEN 325 MG TABLET PO SCH ×3 (00:19→16:35)
[2022-04-07 04:39] LABS: BASOPHILS # (AUTO) 0.1 K/uL (0.0-0.2); BASOPHILS % (AUTO) 1.2 % (0.0-2.0); EOSINOPHILS % (AUTO) 0.7 % (0.0-6.0); HEMATOCRIT 27 % (39-51); HEMOGLOBIN 9.4 g/dL (13.5-17.5); LYMPHOCYTES # (AUTO) 0.4 K/uL (0.8-4.8); LYMPHOCYTES % (AUTO) 5.4 % (20.0-44.0); MEAN CORPUSCULAR HGB CONC 35 g/dl (31.0-36.0); MEAN CORPUSCULAR VOLUME 97 fL (80-96); MONOCYTES # (AUTO) 0.7 K/uL (0.1-1.30); MONOCYTES % (AUTO) 11.2 % (2.0-12.0); NEUTROPHILS # (AUTO) 5.3 K/uL (1.8-8.9); NEUTROPHILS % (AUTO) 81.5 % (43.0-81.0); PLATELET COUNT (AUTO) 356 K/uL (150-450); RED BLOOD CELL COUNT(AUTO) 2.79 MIL/uL (4.5-6.0); WHITE BLOOD COUNT (AUTO) 6.5 K/uL (4.3-11.0)
[2022-04-07 05:22] LABS: ALBUMIN 3.3 g/dL (3.4-5.0); BILIRUBIN,DIRECT 0.3 mg/dL (0.0-0.2); TOTAL PROTEIN, SERUM 6.2 g/dL (6.4-8.2)
[2022-04-07 05:25] LABS: CALCIUM, SERUM 8.1 mg/dL (8.5-10.1); CARBON DIOXIDE 21 mmol/L (21-32); CHLORIDE 114 mmol/L (98-107); CREATININE 1.9 mg/dL (0.6-1.3); GLUCOSE 96 mg/dL (74-106); MAGNESIUM 2.4 mg/dL (1.8-2.4); PHOSPHORUS 3.5 mg/dL (2.5-4.9); POTASSIUM 4.1 mmol/L (3.5-5.1); SODIUM SERUM 145 mmol/L (136-145); UREA NITROGEN, BLOOD 24 mg/dL (7-18)
--- NOTE | 2022-04-07 07:00 | NUR ---
TRUMPET TEACHER NOTE RECEIVED PATIENT IN BED RESTING ALERT ORIENTED X 2-3 VERBALLY RESPONSIVE ON ROOM AIR O2:93% IV SITE IS ON LEFT AC AND RIGHT AC INTACT PATENT ON NS 75CC/HR IV HYDRATION, NIETO CATHETER IN PLACE BLOODY URINE DRAINING BY GRAVITY,SAFETY MEASURE IMPLEMENT BED IN LOW POSITION AND LOCKED,HEAD OF THE BED ELEVATED,CALL LIGHT WITHIN REACH, CONTINUE TO MONITOR.
[2022-04-07] MEDS: PANTOPRAZOLE 40 MG VIAL IV SCH (08:27)
[2022-04-07] MEDS: DUTASTERIDE (0.5 MG) 0.5 MG CAPSULE PO SCH (08:27)
[2022-04-07] MEDS: ASPIRIN 81 MG TAB.CHEW PO SCH (08:27)
[2022-04-07] MEDS: BETHANECHOL CHLORIDE (10 MG) 10 MG TABLET PO SCH ×3 (08:27→16:35)
[2022-04-07] MEDS: MIDODRINE HCL (5MG) 5 MG TABLET PO SCH ×3 (08:43→16:39)
[2022-04-07] MEDS: IV NS 0.9% 1,000 ML IV PRN ×2 (11:02→19:21)
[2022-04-07] MEDS: SUCRALFATE 1 G TABLET PO SCH ×2 (11:56→19:21)
[2022-04-07] MEDS: APIXABAN 2.5 MG TABLET PO SCH (16:38)
--- NOTE | 2022-04-07 17:45 | NUR ---
RN NOTE PATIENT TRANSFER TO ROOM 113 AT [facility],REPORT GIVEN TO ANNAMARIA MCKEON,PT TRANSFERRED WITH ACLS PROTOCOL IN STABLE CONDITION.ALERT ORIENTED X3 VERBALLY RESPONSIVE ON ROOM AIR,96%.
--- NOTE | 2022-04-07 19:10 | NUR ---
RN NOTE RECEIVED PATIENT IN BED, AO X 3-4, FORGETFUL, SON AT BEDSIDE, IN NO ACUTE DISTRESS, BREATHING EVEN AND UNLABORED, SATURATION AT 95% ON ROOM AIR, HR IS 72. IV LINE AT LAC 20G PATENT AND FLUSHING WELL, NO S/S OF INFECTION OR INFILTRATION WITH NS INFUSING AT 75 ML/HR. NIETO CATHETER DRAINING TO A CLEAR, YELLOW OUTPUT. SAFETY MEASURES IMPLEMENTED. PATIENT BED ALARM IS ON. HEAD OF BED ELEVATED. BED IS LOCKED, IN LOWEST POSITION AND SIDE RAILS UP. CALL LIGHT WITHIN REACH OF THE PATIENT. WILL CONTINUE TO MONITOR AND REASSESS FOR ANY CHANGES.
[2022-04-07] MEDS: CEFTRIAXONE 1 G in IV D5W 50 ML IV SCH (21:12)
[2022-04-07] MEDS: TAMSULOSIN 0.4 MG CAP.SR.24H PO SCH (21:12)
[2022-04-08] VITALS: BP 144/81
[2022-04-08] MEDS: GABAPENTIN 300 MG CAPSULE PO SCH ×3 (00:13→16:54)
[2022-04-08] MEDS: ACETAMINOPHEN 325 MG TABLET PO SCH ×3 (00:13→16:54)
[2022-04-08] MEDS: SUCRALFATE 1 G TABLET PO SCH ×4 (00:13→17:06)
[2022-04-08] MEDS ORDERED: LORAZEPAM INJ 2 MG/ML VIAL IV ONE (02:30)
--- NOTE | 2022-04-08 02:30 | NUR ---
RN NOTE PATIENT VERY AGITATED, SAID HE IS GOING HOME, INSISTENT ON GETTING UP AND WALKING, HOWEVER, GAIT IS VERY UNSTEADY. ALSO TRYING TO PULL OUT NIETO CATHETER. MD WAS MADE AWARE, ORDERS RECEIVED FOR ATIVAN 1 MG IV X 1, AND FOR BILATERAL SOFT WRIST RESTRAINTS. COKE HANDLING SUPERVISOR AILYN RANGEL
--- NOTE | 2022-04-08 05:40 | NUR ---
RN NOTE PATIENT GETTING AGITATED AND REFUSED BLOOD DRAW. EXPLAINED IMPORTANCE OF LAB TESTS. PT STILL REFUSED. LAB WILL TRY AGAIN LATER. AM SHIFT RN PINO WILL CALL LAB ONCE PATIENT'S SON COMES IN AM
[2022-04-08 06:05] VITALS: BP 146/77
--- NOTE | 2022-04-08 07:30 | NUR ---
RN OPENING NOTE PATIENT IS IN BED, ASLEEP BUT EASILY AROUSABLE. ALERT, ORIENTED X 2. ON ROOM AIR. BREATHING UNLABORED AND NOT IN ANY FORM OF DISTRESS. V-PACING ON PHOTOGRAPHER'S MODEL. LEFT ANTECUBITAL LINE GAUGE 20 INFUSING WITH NS AT 75 ML/HR. NO SIGNS OF INFILTRATION OR PHLEBITIS. WITH BILATERAL SOFT WRIST RESTRAINTS, ADEQUATE CIRCULATION NOTED ON BOTH EXTREMITIES. NIETO CATHETER INTACT AND ATTACHED TO URINE BAG, DRAINING TO A YELLOW COLORED URINE. BED IS LOCKED IN LOWEST POSITION, 3 SIDE RAILS UP, CALL LIGHT WITHIN REACH. WILL CONTINUE TO MONITOR THROUGHOUT SHIFT.
[2022-04-08 08:00] VITALS: BP 161/82
[2022-04-08] MEDS: BETHANECHOL CHLORIDE (10 MG) 10 MG TABLET PO SCH ×3 (08:38→16:54)
[2022-04-08] MEDS: PANTOPRAZOLE 40 MG TABLET.DR PO SCH (08:39)
[2022-04-08] MEDS: ASPIRIN 81 MG TAB.CHEW PO SCH (08:39)
[2022-04-08] MEDS: APIXABAN 2.5 MG TABLET PO SCH ×2 (08:42→16:58)
[2022-04-08] MEDS: MIDODRINE HCL (5MG) 5 MG TABLET PO SCH ×3 (09:00→17:00)
--- NOTE | 2022-04-08 09:00 | NUR ---
RN NOTE MIDODRINE NOT GIVEN. BP 161/82.
[2022-04-08] MEDS: DUTASTERIDE (0.5 MG) 0.5 MG CAPSULE PO SCH (09:33)
[2022-04-08 11:09] LABS: BASOPHILS # (AUTO) 0.1 K/uL (0.0-0.2); EOSINOPHILS % (AUTO) 0.2 % (0.0-6.0); HEMATOCRIT 28 % (39-51); HEMOGLOBIN 9.7 g/dL (13.5-17.5); LYMPHOCYTES # (AUTO) 0.3 K/uL (0.8-4.8); LYMPHOCYTES % (AUTO) 3.6 % (20.0-44.0); MEAN CORPUSCULAR HGB CONC 35 g/dl (31.0-36.0); MEAN CORPUSCULAR VOLUME 96 fL (80-96); MONOCYTES # (AUTO) 0.8 K/uL (0.1-1.30); MONOCYTES % (AUTO) 8.2 % (2.0-12.0); NEUTROPHILS # (AUTO) 8.1 K/uL (1.8-8.9); PLATELET COUNT (AUTO) 364 K/uL (150-450); RED BLOOD CELL COUNT(AUTO) 2.92 MIL/uL (4.5-6.0); WHITE BLOOD COUNT (AUTO) 9.3 K/uL (4.3-11.0)
[2022-04-08 11:23] LABS: CALCIUM, SERUM 8.2 mg/dL (8.5-10.1); CARBON DIOXIDE 24 mmol/L (21-32); CHLORIDE 109 mmol/L (98-107); CREATININE 1.1 mg/dL (0.6-1.3); GLUCOSE 124 mg/dL (74-106); MAGNESIUM 1.9 mg/dL (1.8-2.4); PHOSPHORUS 1.5 mg/dL (2.5-4.9); POTASSIUM 3.4 mmol/L (3.5-5.1); SODIUM SERUM 141 mmol/L (136-145); UREA NITROGEN, BLOOD 12 mg/dL (7-18)
[2022-04-08 12:00] VITALS: BP 137/75
[2022-04-08] MEDS ORDERED: POTASSIUM CHLORIDE 20 MEQ TAB.PRT.SR PO ONE (12:00)
--- NOTE | 2022-04-08 13:15 | NUR ---
RN NOTE MIDODRINE NOT GIVEN, BP 137/75.
[2022-04-08] MEDS: IV NS 0.9% 1,000 ML IV PRN (14:17)
[2022-04-08 16:00] VITALS: BP 166/80
[2022-04-08] MEDS ORDERED: K PHOS NEUTRAL 250 MG TABLET PO ONE (16:00)
--- NOTE | 2022-04-08 16:00 | NUR ---
RN NOTE MIDODRINE NOT GIVEN. BP 163/80.
[2022-04-08] MEDS: AMLODIPINE BESYLATE 5 MG TABLET PO SCH (18:17)
--- NOTE | 2022-04-08 18:53 | NUR ---
RN CLOSING NOTE PATIENT REMAINED STABLE THROUGHOUT SHIFT. BREATHING UNLABORED AND NOT IN ANY FORM OF DISTRESS.STILL ON BILATERAL SOFT WRIST RESTRAINTS DUE TO EPISODES OF CONFUSION AND TRYING TO GET OUT OF BED. IV LINE REMAINS INTACT AND PATENT. ALL HOSPITAL SAFETY PRECAUTIONS IN PLACE. WILL ENDORSE TO NURSE DISCHARGE PLANNER NURSE.
--- NOTE | 2022-04-08 19:45 | NUR ---
RN OPENING NOTE PATIENT AWAKE IN BED. A/OX2. NO S/S OF DISTRESS, BREATHING WITHOUT DIFFICULTY ON 2L NC. LAC#20 INTACT AND PATENT W/ NS 75ML/HR. TELE READS V-PACING 77. SAFETY MEASURES IN PLACE: BED LOCKED AND AT LOWEST POSITION, RAILS UP X2, CALL ESQUIVEL WITHIN REACH. WILL CONTINUE TO MONITOR THE PATIENT.
[2022-04-08 20:00] VITALS: BP 130/67
[2022-04-08] MEDS: DONEPEZIL 5 MG TABLET PO SCH (21:10)
[2022-04-08] MEDS: CEFTRIAXONE 1 G in IV D5W 50 ML IV SCH (21:10)
[2022-04-08] MEDS: TAMSULOSIN 0.4 MG CAP.SR.24H PO SCH (21:10)
[2022-04-08] MEDS ORDERED: QUETIAPINE FUMARATE 25 MG TABLET PO SCH (22:00)
[2022-04-09] VITALS: BP 142/86
[2022-04-09] MEDS: GABAPENTIN 300 MG CAPSULE PO SCH ×3 (00:57→18:12)
[2022-04-09] MEDS: SUCRALFATE 1 G TABLET PO SCH ×3 (00:57→18:12)
[2022-04-09] MEDS: ACETAMINOPHEN 325 MG TABLET PO SCH ×3 (00:57→18:12)
[2022-04-09 08:00] VITALS: BP 145/80
--- NOTE | 2022-04-09 08:01 | NUR ---
RN OPENING NOTE PATIENT AWAKE IN BED. A/OX2. NO S/S OF DISTRESS, BREATHING WITHOUT DIFFICULTY ON 2L NC. LAC#20 INTACT AND PATENT W/ NS 75ML/HR. TELE READS V-PACING 82. SAFETY MEASURES IN PLACE: BED LOCKED AND AT LOWEST POSITION, RAILS UP X2, CALL ESQUIVEL WITHIN REACH. WILL CONTINUE TO MONITOR THE PATIENT.
[2022-04-09] MEDS: BETHANECHOL CHLORIDE (10 MG) 10 MG TABLET PO SCH ×3 (08:17→18:13)
[2022-04-09] MEDS: PANTOPRAZOLE 40 MG TABLET.DR PO SCH (08:17)
[2022-04-09] MEDS: ASPIRIN 81 MG TAB.CHEW PO SCH (08:17)
[2022-04-09] MEDS: DUTASTERIDE (0.5 MG) 0.5 MG CAPSULE PO SCH (08:18)
[2022-04-09] MEDS: AMLODIPINE BESYLATE 5 MG TABLET PO SCH (08:18)
[2022-04-09] MEDS: MIDODRINE HCL (5MG) 5 MG TABLET PO SCH ×3 (08:20→17:00)
[2022-04-09] MEDS: APIXABAN 2.5 MG TABLET PO SCH ×2 (08:21→17:00)
[2022-04-09 08:34] LABS: BASOPHILS # (AUTO) 0.1 K/uL (0.0-0.2); BASOPHILS % (AUTO) 1.2 % (0.0-2.0); EOSINOPHILS % (AUTO) 0.8 % (0.0-6.0); HEMATOCRIT 27 % (39-51); HEMOGLOBIN 9.3 g/dL (13.5-17.5); LYMPHOCYTES # (AUTO) 0.5 K/uL (0.8-4.8); LYMPHOCYTES % (AUTO) 6.1 % (20.0-44.0); MEAN CORPUSCULAR HGB CONC 34 g/dl (31.0-36.0); MEAN CORPUSCULAR VOLUME 95 fL (80-96); MONOCYTES # (AUTO) 0.8 K/uL (0.1-1.30); MONOCYTES % (AUTO) 10.3 % (2.0-12.0); NEUTROPHILS # (AUTO) 6.5 K/uL (1.8-8.9); NEUTROPHILS % (AUTO) 81.6 % (43.0-81.0); PLATELET COUNT (AUTO) 353 K/uL (150-450); RED BLOOD CELL COUNT(AUTO) 2.88 MIL/uL (4.5-6.0); WHITE BLOOD COUNT (AUTO) 7.9 K/uL (4.3-11.0)
[2022-04-09 09:27] LABS: CALCIUM, SERUM 7.9 mg/dL (8.5-10.1); CREATININE 0.9 mg/dL (0.6-1.3); MAGNESIUM 1.6 mg/dL (1.8-2.4); POTASSIUM 3.6 mmol/L (3.5-5.1)
[2022-04-09 12:00] VITALS: BP 140/73
[2022-04-09] MEDS ORDERED: MAGNESIUM OXIDE 400 MG TABLET PO ONE (13:00)
[2022-04-09] MEDS ORDERED: K PHOS NEUTRAL 250 MG TABLET PO ONE ×2 (15:30→18:30)
[2022-04-09 16:00] VITALS: BP 136/78
--- NOTE | 2022-04-09 19:15 | NUR ---
RN NOTES RECEIVED PT FOR CONTINUITY OF CARE. PATIENT A/OX2 IN NO S/SX OF ACUTE DISTRESS AT THIS TIME; CURRENTLY ON 2L OF O2 VIA NC, WITH 02 SAT >95% AT THIS TIME. WITH IV ACCESS ON L AC#20 PATENT, INTACT AND FLUSHING WELL. WITH RUNNING NS@75CC/HR. ON RENAL DIET. WITH NIETO CATH IN PLACE AND SECURED. WILL ENSURE SAFETY MEASURES WITHIN THE SHIFT. PATIENT BED ALARM IS ON. HEAD OF BED ELEVATED. BED IS LOCKED, IN LOWEST POSITION AND SIDE RAILS UP. CALL LIGHT WITHIN REACH OF THE PATIENT. WILL CONTINUE TO MONITOR AND REASSESS FOR ANY CHANGES AND WILL CARRY OUT ANY ONGOING AND ACTIVE MD ORDER.
[2022-04-09 20:00] VITALS: BP 126/80
[2022-04-09] MEDS: TAMSULOSIN 0.4 MG CAP.SR.24H PO SCH (21:28)
[2022-04-09] MEDS: DONEPEZIL 5 MG TABLET PO SCH (21:28)
[2022-04-09] MEDS: CEFTRIAXONE 1 G in IV D5W 50 ML IV SCH (21:28)
[2022-04-09] MEDS ORDERED: QUETIAPINE FUMARATE 25 MG TABLET PO PRN (22:00)
[2022-04-09] MEDS: IV NS 0.9% 1,000 ML IV PRN (23:39)
[2022-04-10] VITALS: BP 132/80
[2022-04-10] MEDS: SUCRALFATE 1 G TABLET PO SCH ×4 (00:01→17:12)
[2022-04-10] MEDS: GABAPENTIN 300 MG CAPSULE PO SCH ×3 (00:02→16:31)
[2022-04-10] MEDS: ACETAMINOPHEN 325 MG TABLET PO SCH ×3 (00:02→16:31)
[2022-04-10 04:00] VITALS: BP 135/75
[2022-04-10 06:50] LABS: BASOPHILS # (AUTO) 0.1 K/uL (0.0-0.2); BASOPHILS % (AUTO) 1.7 % (0.0-2.0); EOSINOPHILS % (AUTO) 3.3 % (0.0-6.0); HEMATOCRIT 28 % (39-51); HEMOGLOBIN 9.6 g/dL (13.5-17.5); LYMPHOCYTES # (AUTO) 0.6 K/uL (0.8-4.8); LYMPHOCYTES % (AUTO) 9.3 % (20.0-44.0); MEAN CORPUSCULAR HGB CONC 35 g/dl (31.0-36.0); MEAN CORPUSCULAR VOLUME 96 fL (80-96); MONOCYTES # (AUTO) 0.7 K/uL (0.1-1.30); NEUTROPHILS # (AUTO) 4.8 K/uL (1.8-8.9); NEUTROPHILS % (AUTO) 74.7 % (43.0-81.0); PLATELET COUNT (AUTO) 344 K/uL (150-450); WHITE BLOOD COUNT (AUTO) 6.4 K/uL (4.3-11.0)
--- NOTE | 2022-04-10 06:51 | NUR ---
STAFF DEVELOPMENT COORDINATOR RN NOTES PTS REMAINS IN BED A/O X 2-3 REMAINS ON TELE STATUS ON 2 LITERS OF 02 VIA NC HR 70 SATING 98 % NO SOB NO DISTRESS NOTED . ON F/C DRAINING WITH YELLOWISH URINE OUTPUT NO HEMATURIA NOTED , WELL ENDORSE TO RN DAY SHIFT FOR CONTINUITY OF CARE
[2022-04-10] MEDS: PANTOPRAZOLE 40 MG TABLET.DR PO SCH (07:47)
[2022-04-10 08:00] VITALS: BP 132/75
[2022-04-10] MEDS: AMLODIPINE BESYLATE 5 MG TABLET PO SCH (08:52)
[2022-04-10] MEDS: BETHANECHOL CHLORIDE (10 MG) 10 MG TABLET PO SCH ×3 (08:53→16:31)
[2022-04-10] MEDS: DUTASTERIDE (0.5 MG) 0.5 MG CAPSULE PO SCH (08:53)
[2022-04-10] MEDS: ASPIRIN 81 MG TAB.CHEW PO SCH (08:53)
[2022-04-10 08:55] LABS: CALCIUM, SERUM 7.8 mg/dL (8.5-10.1); MAGNESIUM 1.7 mg/dL (1.8-2.4); PHOSPHORUS 2.5 mg/dL (2.5-4.9); POTASSIUM 3.4 mmol/L (3.5-5.1)
[2022-04-10] MEDS: APIXABAN 2.5 MG TABLET PO SCH (08:55)
[2022-04-10] MEDS: MIDODRINE HCL (5MG) 5 MG TABLET PO SCH ×3 (09:00→16:32)
[2022-04-10] MEDS: ENSURE ENLIVE 237 ML LIQUID (VANILLA) PO SCH (09:29)
[2022-04-10] MEDS ORDERED: MAGNESIUM OXIDE 400 MG TABLET PO ONE (10:30)
[2022-04-10 12:00] VITALS: BP 123/64
[2022-04-10] MEDS: IV NS 0.9% 1,000 ML IV PRN (13:47)
[2022-04-10 16:00] VITALS: BP 125/65
--- NOTE | 2022-04-10 19:00 | NUR ---
RN NOTES: RECEIVED AWAKE ON BED,A/OX1-2 WITH PERIODS OF CONFUSION, ON O2 VIA NC AT 2L/MIN SPO2-95%, ON TELE MONITOR V-PACING, ON NIETO CATH DRAINING INTO DARK YELLOWISH BROWN COLORED URINE AT 100CC LEVEL,NO HEMATURIA NOTED, ABDOMINA AREA, S/P EX-LAP WITH MARCELO INTATC, NO DRAINAGE, SURGICAL SITE KEPT CLEAN AND MONITORED FOR SIGN OF INFECTION, IV CANNULA ON THE LAC G#20 WITH IVF OF NS AT 75 ML/HR.FOR IVC FILTER PROCEDURE TOMORROW, INSTRUCT FOR NPO AT 12 MIDNIGHT, CONSENT FORM SIGNED PER ENDORSEMENT.HOLD ANTICOAGULANT TODAY. Addendum: 04/10/22 at 2008 by JASON CHANCE RN ADDED NOTES: ORIENTED TO UNIT AND STAFF, FALL AND SAFETY PRECAUTION OBSERVED, KEPT CALL LIGHT WITHIN EASY REACH.
[2022-04-10 20:00] VITALS: BP 131/69
[2022-04-10] MEDS: DONEPEZIL 5 MG TABLET PO SCH (21:18)
[2022-04-10] MEDS: TAMSULOSIN 0.4 MG CAP.SR.24H PO SCH (21:18)
[2022-04-11] VITALS: BP 141/74
[2022-04-11] MEDS: ACETAMINOPHEN 325 MG TABLET PO SCH ×4 (00:08→16:53)
[2022-04-11] MEDS: SUCRALFATE 1 G TABLET PO SCH ×4 (00:08→17:17)
[2022-04-11] MEDS: GABAPENTIN 300 MG CAPSULE PO SCH ×4 (00:08→16:52)
[2022-04-11 04:00] VITALS: BP 141/74
[2022-04-11] MEDS: IV NS 0.9% 1,000 ML IV PRN ×2 (04:07→20:40)
--- NOTE | 2022-04-11 04:09 | NUR ---
RN NOTES: IVF CONSUMED ,STARTED NEW BOTTLE OF NS AT 75 ML/HR.
[2022-04-11] MEDS: PANTOPRAZOLE 40 MG TABLET.DR PO SCH ×2 (07:30→08:54)
--- NOTE | 2022-04-11 07:30 | NUR ---
RN OPENING NOTE PATIENT IS IN BED AWAKE, ALERT ORIENTED X 3, DENIES PAIN, BREATHING UNLABORED AND NOT IN ANY FORM OF DISTRESS. WITH OXYGEN VIA NASAL CANNULA AT 2L/MIN. V-PACING ON POLL CLERK. WITH NIETO CATHETER ATTACHED TO URINE BAG DRAINING TO CLEAR YELLOW URINE. LEFT ANTECUBITAL LINE INTACT AND PATENT, INFUSING WITH NS AT 75 CC/HR. ON NPO IN PREPARATION FOR IVC FILTER PLACEMENT. BED IS LOCKED IN LOWEST POSITION, 3 SIDE RAILS UP, CALL LIGHT WITHIN REACH. WILL CONTINUE TO MONITOR THROUGHOUT SHIFT.
[2022-04-11 07:32] LABS: BASOPHILS % (AUTO) 1.2 % (0.0-2.0); EOSINOPHILS % (AUTO) 3.7 % (0.0-6.0); HEMATOCRIT 28 % (39-51); HEMOGLOBIN 9.6 g/dL (13.5-17.5); LYMPHOCYTES % (AUTO) 9.1 % (20.0-44.0); MEAN CORPUSCULAR HGB CONC 34 g/dl (31.0-36.0); MEAN CORPUSCULAR VOLUME 96 fL (80-96); MONOCYTES % (AUTO) 11.1 % (2.0-12.0); NEUTROPHILS % (AUTO) 74.9 % (43.0-81.0); PLATELET COUNT (AUTO) 359 K/uL (150-450); RED BLOOD CELL COUNT(AUTO) 2.95 MIL/uL (4.5-6.0); WHITE BLOOD COUNT (AUTO) 6.8 K/uL (4.3-11.0)
[2022-04-11 07:33] LABS: BASOPHILS # (AUTO) 0.1 K/uL (0.0-0.2); LYMPHOCYTES # (AUTO) 0.6 K/uL (0.8-4.8); MONOCYTES # (AUTO) 0.7 K/uL (0.1-1.30); NEUTROPHILS # (AUTO) 5.1 K/uL (1.8-8.9)
[2022-04-11 07:44] LABS: CALCIUM, SERUM 7.9 mg/dL (8.5-10.1); CARBON DIOXIDE 26 mmol/L (21-32); CHLORIDE 109 mmol/L (98-107); GLUCOSE 93 mg/dL (74-106); POTASSIUM 3.8 mmol/L (3.5-5.1); SODIUM SERUM 141 mmol/L (136-145); UREA NITROGEN, BLOOD 9 mg/dL (7-18)
--- NOTE | 2022-04-11 07:52 | NUR ---
RN NOTES: MORNING CARE DONE, DRESSING DONE ON THE MARCELO IN THE ABDOMINAL AREA, NO DRAINAGE, NO REDNESS,NO SWELLING, NO SIGN OF INFECTION, ORAL MEDS GIVEN WITH SIPS OF WATER, NPO, FOR IVC FILTER PLACEMENT AT 1000AM, FOR LABS IN THE MORNING, ENDORSED FOR CONTINUITY OF CARE URINE OUTPUT 950ML. NO HEMATURIA.
[2022-04-11 08:00] VITALS: BP 146/98
[2022-04-11] MEDS: ENSURE ENLIVE 237 ML LIQUID (VANILLA) PO SCH (08:00)
[2022-04-11] MEDS: BETHANECHOL CHLORIDE (10 MG) 10 MG TABLET PO SCH ×4 (08:51→16:52)
[2022-04-11] MEDS: AMLODIPINE BESYLATE 5 MG TABLET PO SCH ×2 (08:51→09:00)
[2022-04-11] MEDS: DUTASTERIDE (0.5 MG) 0.5 MG CAPSULE PO SCH ×2 (08:51→09:00)
[2022-04-11] MEDS: ASPIRIN 81 MG TAB.CHEW PO SCH ×2 (08:52→09:00)
[2022-04-11] MEDS: MIDODRINE HCL (5MG) 5 MG TABLET PO SCH ×3 (08:52→16:53)
--- NOTE | 2022-04-11 09:00 | NUR ---
RN NOTE PATIENT TO OR FOR IVC FILTER PLACEMENT, ACCOMPANIED BY 2 OR STAFF, IN STABLE CONDITION.
[2022-04-11] MEDS ORDERED: ANESTHESIA TRAY IN PYXIS 1 EA TRAY MC ONE (09:26)
[2022-04-11] MEDS ORDERED: HEPARIN SODIUM, PORCINE 1,000 UNIT/ML VIAL ONE (09:26)
[2022-04-11] MEDS ORDERED: IOHEXOL 240MG/ML 50 ML IV ONE (09:26)
[2022-04-11] MEDS ORDERED: LIDOCAINE 1% INJ 50 ML MDV IJ ONE (09:27)
[2022-04-11] MEDS ORDERED: FENTANYL PF 100MCG/2ML AMPUL ONE (10:17)
--- NOTE | 2022-04-11 11:58 | NUR ---
RN NOTE RECEIVED PATIENT FROM OR POST IVC FILTER PLACEMENT IN STABLE CONDITION. RIGHT GROIN IS COVERED WITH DRY DRESSING. WILL MONITOR FOR SIGNS OF BLEEDING.
[2022-04-11 12:02] VITALS: BP 147/93
--- NOTE | 2022-04-11 13:03 | NUR ---
RN NOTE MIDODRINE NOT GIVEN. BP 147/93.
[2022-04-11 16:00] VITALS: BP 146/78
--- NOTE | 2022-04-11 17:00 | NUR ---
RN NOTE MIDODRINE NOT GIVEN, BP 146/78.
--- NOTE | 2022-04-11 18:57 | NUR ---
RN CLOSING NOTE PATIENT REMAINED STABLE THROUGHOUT SHIFT. IVC FILTER SITE IS COVERED WITH DRY DRESSING, NO EVIDENCE OF BLEEDING. ON ROOM AIR, BREATHING UNLABORED AND NOT IN ANY FORM OF DISTRESS. NO EPISODE OF CONFUSION, ALERT ORIENTED X 4. LEFT ANTECUBITAL LINE REMAINS INTACT AND PATENT. NIETO CATHETER REMAINS INTACT. ALL HOSPITAL SAFETY PRECAUTIONS KEPT IN PLACE. WILL ENDORSE TO MEDICAL SCREENER NURSE.
--- NOTE | 2022-04-11 19:30 | NUR ---
RN Note Received patient in bed, awake, alert, and verbally responsive. Breathing even and unlabored. on room air. denies sob. no cough, N/V noted. Skin is warm and dry to touch. On tele monitoring. denies chest pain. left upper chest permanent pacemaker, skin intact. Left AC 20G PIV intact, infusing NS at 75 cc/hr. No infiltration noted. Right groin with dry dressing. no hematoma noted. Abdominal suture intact. no drainage. Assisted with turning and repositioning. Bed low, in locked position, call light within reach.
[2022-04-11 20:00] VITALS: BP 125/72
[2022-04-11] MEDS: TAMSULOSIN 0.4 MG CAP.SR.24H PO SCH (21:04)
[2022-04-11] MEDS: DONEPEZIL 5 MG TABLET PO SCH (21:05)
[2022-04-12] VITALS (7 sets, daily range): BP systolic 109–148; BP diastolic 51–82
[2022-04-12] MEDS: SUCRALFATE 1 G TABLET PO SCH ×4 (00:18→16:57)
[2022-04-12] MEDS: ACETAMINOPHEN 325 MG TABLET PO SCH ×3 (00:19→16:58)
[2022-04-12] MEDS: GABAPENTIN 300 MG CAPSULE PO SCH ×3 (00:20→16:58)
[2022-04-12 06:27] LABS: BASOPHILS # (AUTO) 0.1 K/uL (0.0-0.2); BASOPHILS % (AUTO) 1.5 % (0.0-2.0); EOSINOPHILS % (AUTO) 3.7 % (0.0-6.0); HEMATOCRIT 27 % (39-51); HEMOGLOBIN 9.5 g/dL (13.5-17.5); LYMPHOCYTES # (AUTO) 0.5 K/uL (0.8-4.8); LYMPHOCYTES % (AUTO) 7.8 % (20.0-44.0); MEAN CORPUSCULAR HGB CONC 35 g/dl (31.0-36.0); MEAN CORPUSCULAR VOLUME 95 fL (80-96); MONOCYTES # (AUTO) 0.6 K/uL (0.1-1.30); MONOCYTES % (AUTO) 9.6 % (2.0-12.0); NEUTROPHILS % (AUTO) 77.4 % (43.0-81.0); PLATELET COUNT (AUTO) 346 K/uL (150-450); RED BLOOD CELL COUNT(AUTO) 2.87 MIL/uL (4.5-6.0); WHITE BLOOD COUNT (AUTO) 6.4 K/uL (4.3-11.0)
[2022-04-12 06:48] LABS: POTASSIUM 3.6 mmol/L (3.5-5.1)
--- NOTE | 2022-04-12 07:53 | NUR ---
HISTOLOGY TECHNOLOGIST NOTE PATIENT IN BED RESTING COMFORTABLY, ON RA, NO SOB NOTED AT THIS TIME ON TELE MONITOR V PACING HR 63 , LT AC HL INTACT AND FLUSHED WELL , ON IVF ORDERED, WITH NIETO CATH TO GRAVITY WITH YELLOW COLOR URINE , RT GROIN WIT DRESSING INTACT NO BLEEDING NOTED , BED IN LOWEST AND LOCKED POSITION , CALL LIGHT WITHIN REACH, WILL MONITOR
[2022-04-12] MEDS: PANTOPRAZOLE 40 MG TABLET.DR PO SCH (07:55)
--- NOTE | 2022-04-12 08:34 | NUR ---
COIL ASSEMBLER NOTE DR CHAMBERLAIN NOTIFIED THAT TROPONIN ON 04/08/22 119 STATED THAT WILL CHECK IT Addendum: 04/12/22 at 0835 by ARCHANA STRANGE RN ST AT BEDSIDE OK TO CONT RENAL DIET ABLE TO SWALLOW WELL
[2022-04-12] MEDS: DUTASTERIDE (0.5 MG) 0.5 MG CAPSULE PO SCH (08:55)
[2022-04-12] MEDS: ASPIRIN 81 MG TAB.CHEW PO SCH (08:56)
[2022-04-12] MEDS: AMLODIPINE BESYLATE 5 MG TABLET PO SCH (08:56)
[2022-04-12] MEDS: BETHANECHOL CHLORIDE (10 MG) 10 MG TABLET PO SCH ×3 (08:56→16:58)
[2022-04-12] MEDS: MIDODRINE HCL (5MG) 5 MG TABLET PO SCH ×3 (09:00→16:57)
[2022-04-12] MEDS: ENSURE ENLIVE 237 ML LIQUID (VANILLA) PO SCH (09:03)
--- NOTE | 2022-04-12 11:05 | NUR ---
AUTO MECHANIC APPRENTICE NOTE KHUSHI RN DNP AT BEDSIDE ,UPDATED PATIENT CONDITION
[2022-04-12] MEDS: IV NS 0.9% 1,000 ML IV PRN (11:47)
--- NOTE | 2022-04-12 12:00 | NUR ---
telecom specialist note all needs attended, family at bedside
--- NOTE | 2022-04-12 15:14 | NUR ---
telecommunication systems designer note assisted to br , able to make bm,keep clean dry , call ,light within reach
--- NOTE | 2022-04-12 17:59 | NUR ---
teletypesetter monitor note having dinner , able to ea self
--- NOTE | 2022-04-12 18:35 | NUR ---
BAKERY DEMONSTRATOR NOTE PATIENT RESTING COMFORTABLY IN BED , ALL NEEDS ATTENDED , ON RA, NO SOB NOTED AT THIS TIME, ON IVF ORDERED ,BED IN LOWEST AND LOCKED POSITION WILL CONT TO MONITOR CLOSELY, SAFETY MEASURE PROVIDED
--- NOTE | 2022-04-12 19:40 | NUR ---
DIRECTOR OF RESTAURANTS OPENING NOTE RECEIVED PATIENT IN BED AWAKE, ALERT ORIENTED X 4, DENIES PAIN, BREATHING EVEN AND UNLABORED AND NOT IN ANY FORM OF DISTRESS. ON RA TOLERATING WELL, V-PACING ON HEALTH INFORMATION MANAGEMENT DIRECTOR AT 62 BPM. WITH NIETO CATHETER ATTACHED TO URINE BAG DRAINING TO CLEAR YELLOW URINE. LEFT ANTECUBITAL LINE INTACT AND PATENT, INFUSING WITH NS AT 75 CC/HR. BED IS LOCKED IN LOWEST POSITION, 3 SIDE RAILS UP, CALL LIGHT WITHIN REACH. WILL CONTINUE TO MONITOR THROUGHOUT SHIFT.
--- NOTE | 2022-04-12 20:30 | NUR ---
RN NOTE REPORT GIVEN TO MIKE VERA AT 3W FOR CONTINUITY OF CARE. PT TRANSFERRED TO BED 310-2 VIA ACLS PROTOCOL.
--- NOTE | 2022-04-12 21:05 | NUR ---
TRANSFER NOTES RECEIVED PT IN BED, AWAKE AT APPROXIMATELY 2105. AOx4, ABLE TO MAKE NEEDS KNOWN. ON RA AND TOLERATING WELL. NO SOB NOTED. NO S/SX OF RESPIRATORY DISTRESS NOTED. TELE MONITOR DETECTS V-PACING WITH RATE OF 64. IV ACCESS IN LAC #18 RUNNING NS @75 ML/HR. SAFETY PRECAUTIONS IN PLACE: BED IN LOWEST, LOCKED POSITION, SIDERAILS UPx2, AND BRAKES ON. TABLE AND CALL LIGHT WITHIN REACH. WILL CONTINUE PLAN OF CARE.
[2022-04-12] MEDS: TAMSULOSIN 0.4 MG CAP.SR.24H PO SCH (21:37)
[2022-04-12] MEDS: DONEPEZIL 5 MG TABLET PO SCH (21:37)
[2022-04-13] VITALS: BP 144/87
[2022-04-13] MEDS: SUCRALFATE 1 G TABLET PO SCH ×4 (00:15→17:54)
[2022-04-13] MEDS: ACETAMINOPHEN 325 MG TABLET PO SCH ×3 (00:15→16:25)
[2022-04-13] MEDS: GABAPENTIN 300 MG CAPSULE PO SCH ×3 (00:15→16:24)
[2022-04-13] MEDS: IV NS 0.9% 1,000 ML IV PRN (01:16)
[2022-04-13 04:00] VITALS: BP 146/74
[2022-04-13] MEDS: PANTOPRAZOLE 40 MG TABLET.DR PO SCH (06:31)
--- NOTE | 2022-04-13 06:51 | NUR ---
RN CLOSING NOTES PT IN BED, AWAKE. AOx4, ABLE TO MAKE NEEDS KNOWN. ON RA AND TOLERATING WELL. NO SOB NOTED. NO S/SX OF RESPIRATORY DISTRESS NOTED. TELE MONITOR DETECTS V-PACING WITH RATE OF 64. IV ACCESS IN LAC #18 RUNNING NS @75 ML/HR. ALL ORDERS CARRIED OUT. ALL NEEDS MET. PT KEPT CLEAN AND DRY. SAFETY PRECAUTIONS IN PLACE: BED IN LOWEST, LOCKED POSITION, SIDERAILS UPx2, AND BRAKES ON. TABLE AND CALL LIGHT WITHIN REACH. WILL ENDORSE TO ONCOMING SHIFT FOR BAILEY.
--- NOTE | 2022-04-13 07:30 | NUR ---
PASTING MACHINE OPERATOR OPENING RECEIVED PATIENT ON BED AWAKE AND A/O X4. ON ROOM AIR TOLERATING WELL. NO SOB NOTED. NOT IN DISTRESS. WITH NO COMPLAINTS OF PAIN OR DISCOMFORT AT THIS TIME. WITH IV ACCESS AT THE LEFT AC G20 WITH NS AT 75ML/HR INFUSING WELL. WITH NIETO CATHETER IN PLACED. SAFETY MEASURES IN PLACED. CALL LIGHT WITHIN REACH. BED ON LOWEST LOCKED POSITION, SIDE RAILS UP X2. WILL CONTINUE TO MONITOR.
--- NOTE | 2022-04-13 07:30 | NUR ---
RN NOTE ON TELE MONITOR CURRENTLY READING V-PACING AT 66BPM.
[2022-04-13 08:00] VITALS: BP 137/79
[2022-04-13] MEDS: ASPIRIN 81 MG TAB.CHEW PO SCH (08:18)
[2022-04-13] MEDS: BETHANECHOL CHLORIDE (10 MG) 10 MG TABLET PO SCH ×3 (08:18→16:25)
[2022-04-13] MEDS: DUTASTERIDE (0.5 MG) 0.5 MG CAPSULE PO SCH (08:18)
[2022-04-13] MEDS: ENSURE ENLIVE 237 ML LIQUID (VANILLA) PO SCH (08:19)
[2022-04-13] MEDS: AMLODIPINE BESYLATE 5 MG TABLET PO SCH (08:19)
[2022-04-13] MEDS: MIDODRINE HCL (5MG) 5 MG TABLET PO SCH ×3 (08:19→16:24)
--- NOTE | 2022-04-13 09:34 | NUR ---
WOUND CARE CONSULT: PT PRESENTS WITH BILATERAL DORSAL FOOT LESIONS AND ABDOMINAL INCISION WHICH IS CLOSED WITH MARCELO. GROIN DRESSING IS DRY AND INTACT. PT HAS VERY BONY SACRAL AREA. RECOMMENDATIONS MADE FOR SKIN PROTECTION. DISCUSSED WITH NURSING STAFF. PT ABLE TO ASSIST WITH TURNING AND REPOSITIONING IN BED. DR GILBERT CALLED FOR DPM CONSULT. MD IN AGREEMENT WITH PLAN OF CARE.
[2022-04-13 12:00] VITALS: BP 113/60
[2022-04-13 16:00] VITALS: BP 107/62
[2022-04-13 16:24] VITALS: BP 107/62
--- NOTE | 2022-04-13 18:27 | NUR ---
TALENT SOURCING SPECIALIST CLOSING NOTES PATIENT ON BED AWAKE AND A/O X4. ON ROOM AIR TOLERATING WELL. NO SOB NOTED. NOT IN DISTRESS. WITH NO COMPLAINTS OF PAIN OR DISCOMFORT AT THIS TIME. WITH IV ACCESS AT THE LEFT AC G20 WITH NS AT 75ML/HR INFUSING WELL. WITH NIETO CATHETER IN PLACED. DUE MEDS GIVEN. AWAITING FOR AMBULANCE PERSONNEL FOR DISCHARGE TO [facility]. SAFETY MEASURES IN PLACED. CALL LIGHT WITHIN REACH. BED ON LOWEST LOCKED POSITION, SIDE RAILS UP X2. WILL ENDORSE TO NEXT SHIFT FOR BAILEY.
--- NOTE | 2022-04-13 19:00 | NUR ---
RN NOTE [facility] GAVE REPORT TO DOMI. WELFARE MANAGER TIME AT 1930.
--- NOTE | 2022-04-13 20:05 | NUR ---
RN OPENING AND DISCHARGE NOTES RECEIVED PT IN BED, AWAKE, FAMILY AT BEDSIDE. AO x4, ABLE TO MAKE NEEDS KNOWN. ON RA AND TOLERATING WELL. IV ACCESS REMOVED. TELE MONITOR REMOVED. ABDOMINAL MARCELO REMOVED PER MD ORDER WITH DAYSHIFT RN. ID BAND REMOVED. ALL BELONGINGS ACCOUNTED FOR. FAMILY TOOK BELONGINGS HOME. DISCHARGE PAPERWORK PROVIDED AND SIGNED. HEMODYNAMICALLY STABLE. REPORT GIVEN TO [facility] PER DAYSHIFT RN. REPORT GIVEN TO 2 sewer inspector FOR TRANSPORT.
== END 2022-04-13 20:05 | DRG 280 ==
LOC: ER 21:18 → ICU 23:32 → TELE1 04-07 18:04 → TELE 04-12 20:47
PROVIDERS: ADMIT Nurse Practitioner Acute Care; ATTEND Nurse Practitioner Acute Care
PROC: 06H03DZ Insertion of Intraluminal Device into Inferior Vena Cava, Percutaneous Approach (ICD-10-PCS; principal; 2022-04-11)
DX: I82.412 Acute embolism and thrombosis of left femoral vein (principal); G93.41 Metabolic encephalopathy; I21.A1 Myocardial infarction type 2; J15.9 Unspecified bacterial pneumonia; N17.0 Acute kidney failure with tubular necrosis; N13.8 Other obstructive and reflux uropathy; E87.1 Hypo-osmolality and hyponatremia; E87.2 Acidosis; R18.8 Other ascites; N13.30 Unspecified hydronephrosis; N13.4 Hydroureter; I25.10 Atherosclerotic heart disease of native coronary artery without angina pectoris; D63.8 Anemia in other chronic diseases classified elsewhere; E83.42 Hypomagnesemia; M20.42 Other hammer toe(s) (acquired), left foot; M20.41 Other hammer toe(s) (acquired), right foot; N31.9 Neuromuscular dysfunction of bladder, unspecified; Z20.822 Contact with and (suspected) exposure to COVID-19; Z79.82 Long term (current) use of aspirin; Z95.0 Presence of cardiac pacemaker; R53.1 Weakness; E87.5 Hyperkalemia; I10 Essential (primary) hypertension; Z90.49 Acquired absence of other specified parts of digestive tract; Z98.890 Other specified postprocedural states; N40.0 Benign prostatic hyperplasia without lower urinary tract symptoms; R31.9 Hematuria, unspecified; I27.20 Pulmonary hypertension, unspecified; I07.1 Rheumatic tricuspid insufficiency; S90.821A Blister (nonthermal), right foot, initial encounter; X58.XXXA Exposure to other specified factors, initial encounter; Y93.9 Activity, unspecified; Y92.89 Other specified places as the place of occurrence of the external cause
CPT/HCPCS: 36415; 36600; 71045-TC; 76770-TC; 76870-TC; 80048-TC; 80076-TC; 82570-TC; 83540-TC; 83605-TC; 83690-TC; 83735-TC; 83880; 84100-TC; 84153-TC; 84154-TC; 84300-TC; 84443-TC; 84484-TC; 85025-TC; 85045-TC; 85730-TC; 87081-TC; 87086-TC; 92526; 92611-TC; 93307-TC; 93970-TC; 94799-TC; 97110-TC; 97116-TC; 97530-TC; A4216; A4217; A4649; C1769; C1880; C9113; C9803; G0378; J0690; J0696; J1644; J2060; J2270; J3010; J3490; J7030; J7050; J7060; P9047; Q9966; Q9967